=== PATIENT | female | born 1980 | race Two or more races ===

== ENCOUNTER 2020-07-10 07:38 | Outpatient (REF) | payer OTHER, SELFPAY ==
[2020-07-10 08:01] LABS: MANUAL DIFF FLAG NO
[2020-07-10 08:10] LABS: Basophils Percent Auto 0.7 % (0-2); Eosinophils Absolute Auto 0.1 X10*3/uL (0.0-0.4); Eosinophils Percent Auto 1.4 % (0-4); Hematocrit 34.9 % (37-47); Hemoglobin 10.6 g/dl (12.0-16.0); Imm Gran Abs Auto 0.02 X10*3/uL (0.00-0.03); Imm Gran Pct Auto 0.3 % (0.0-0.4); Lymphocytes Absolute Auto 1.3 X10*3/uL (1.2-4.9); Lymphocytes Percent Auto 22.9 % (20-40); Mean Corpuscular HGB Conc 30.4 g/dl (31.0-35.0); Mean Corpuscular Hemoglobin 23.2 pg (27.0-33.0); Mean Corpuscular Volume 76.4 fL (80-98); Mean Platelet Volume 11.7 fL (9.4-12.3); Monocytes Absolute Auto 0.5 X10*3/uL (0.1-1.2); Monocytes Percent Auto 8.2 % (2-11); Neutrophils Absolute Auto 3.9 X10*3/uL (2.0-8.3); Neutrophils Percent Auto 66.5 % (45-73); Platelet Count 295 X10*3/uL (160-400); Red Blood Count 4.57 X10*6/uL (4.20-5.50); Red Cell Distribution Width 17.1 % (11.0-16.0); White Blood Count 5.8 X10*3/uL (4.8-10.8)
[2020-07-10 08:33] LABS: Anion Gap 12 (12-20); Blood Urea Nitrogen 13 mg/dL (9-16); Calcium 8.5 mg/dL (8.4-10.2); Carbon Dioxide 25 mmol/L (22-29); Chloride 109 mmol/L (96-108); Cholesterol 153 mg/dL; Estimated Glomerular Filt Rate > 60; Glucose Random 107 mg/dL (60-115); HDL Cholesterol 36 mg/dL; LDL Cholesterol Calculated 92 mg/dl; Sodium 142 mmol/L (135-145); Triglycerides 125 mg/dL
[2020-07-10 09:06] LABS: Reflex LDLD? No
== END 2020-07-10 07:39 | disposition home or self-care (01) ==
LOC: HO.LAB 07:38
PROVIDERS: PCP Internal Medicine; Visit Provider Nurse Practitioner Family
DX: M54.5 Low back pain (principal)
CPT/HCPCS: 36415; 80048; 80061; 85025

== ENCOUNTER 2020-07-18 09:17 | Outpatient (REF) | payer OTHER, SELFPAY ==
[2020-07-18 16:01] LABS: CT PCR NOT DETECTED (Not Detect.); NG PCR NOT DETECTED (Not Detect.)
[2020-07-20 18:27] LABS: HPV mRNA E6/E7 Not Detected (Not Detected)
== END 2020-07-18 09:18 | disposition home or self-care (01) ==
LOC: HO.LAB 09:17
PROVIDERS: PCP Internal Medicine; Referring Provider Internal Medicine; Visit Provider Advanced Practice Midwife
DX: Z01.419 Encounter for gynecological examination (general) (routine) without abnormal findings (principal); Z11.51 Encounter for screening for human papillomavirus (HPV); Z11.3 Encounter for screening for infections with a predominantly sexual mode of transmission; R10.2 Pelvic and perineal pain
CPT/HCPCS: 87491; 87591; 87624; 87625; 88141; 88142

== ENCOUNTER → 2020-10-16 13:34 | Outpatient (BNVA) | payer OTHER, SELFPAY | PROVIDERS: Visit Provider Obstetrics & Gynecology | DX: R87.610 Atypical squamous cells of undetermined significance on cytologic smear of cervix (ASC-US) (principal) | CPT/HCPCS: 99212 ==

== ENCOUNTER 2020-10-27 15:13 | Outpatient (REF) | payer OTHER, SELFPAY ==
--- NOTE | 2020-10-27 15:16 | MM_ITS ---
EXAMINATION: MM SCREENING DIGITAL BREAST TOMOSYNTHESIS, BILATERAL CLINICAL INFORMATION: Screening. Asymptomatic. The lifetime risk of breast cancer based on the Tyrer-Cuzick Model is 15.0%. COMPARISON: Mammography: None TECHNIQUE: Digital breast tomosynthesis is performed in both the craniocaudal and mediolateral oblique views along with computer-aided detection (CAD). Synthesized 2D images are generated from the tomosynthesis. FINDINGS: There are scattered areas of fibroglandular density (ACR BI-RADS breast composition Category b). There are no significant masses, abnormal calcifications, or other abnormalities. MM/MM tomosynthesis screening BI IMPRESSION: There are no significant changes from prior study. ASSESSMENT: BI-RADS 1: Negative RECOMMENDATION: Routine annual mammography screening. This patient's information was entered into a reminder system with a target due date for their next mammogram.
== END 2020-10-27 15:14 | disposition home or self-care (01) ==
LOC: HO.MAMMO 15:13
PROVIDERS: PCP Nurse Practitioner Family; Visit Provider Nurse Practitioner Family
DX: Z12.31 Encounter for screening mammogram for malignant neoplasm of breast (principal)
CPT/HCPCS: 77063; 77067

== ENCOUNTER → 2020-10-30 12:02 | Outpatient (BNVA) | payer OTHER, SELFPAY | PROVIDERS: PCP Nurse Practitioner Family; Visit Provider Obstetrics & Gynecology ==

== ENCOUNTER 2020-11-02 09:23 | Outpatient (REF) | payer OTHER, SELFPAY | END 2020-11-02 09:24 | disposition home or self-care (01) | LOC: HO.LAB 09:23 | PROVIDERS: Visit Provider Internal Medicine | DX: Z20.822 Contact with and (suspected) exposure to COVID-19 (principal) | CPT/HCPCS: 36415; C9803; U0003; U0005 ==

== ENCOUNTER 2020-12-25 08:09 | Outpatient (REF) | payer OTHER, SELFPAY ==
[2020-12-25 08:37] LABS: MANUAL DIFF FLAG NO
[2020-12-25 08:42] LABS: Basophils Percent Auto 0.6 % (0-2); Eosinophils Absolute Auto 0.1 X10*3/uL (0.0-0.4); Eosinophils Percent Auto 1.7 % (0-4); Hemoglobin 11.8 g/dl (12.0-16.0); Imm Gran Abs Auto 0.02 X10*3/uL (0.00-0.03); Imm Gran Pct Auto 0.4 % (0.0-0.4); Lymphocytes Absolute Auto 1.4 X10*3/uL (1.2-4.9); Lymphocytes Percent Auto 25.8 % (20-40); Mean Corpuscular HGB Conc 31.9 g/dl (31.0-35.0); Mean Corpuscular Hemoglobin 26.3 pg (27.0-33.0); Mean Corpuscular Volume 82.4 fL (80-98); Mean Platelet Volume 11.7 fL (9.4-12.3); Monocytes Absolute Auto 0.5 X10*3/uL (0.1-1.2); Monocytes Percent Auto 8.9 % (2-11); Neutrophils Absolute Auto 3.3 X10*3/uL (2.0-8.3); Neutrophils Percent Auto 62.6 % (45-73); Platelet Count 308 X10*3/uL (160-400); Red Blood Count 4.49 X10*6/uL (4.20-5.50); Red Cell Distribution Width 16.4 % (11.0-16.0); White Blood Count 5.3 X10*3/uL (4.8-10.8)
[2020-12-25 09:25] LABS: Iron 37 mcg/dL (30-160); Percent Iron Saturation 10 % (15-50); Total Iron Binding Capacity 371 mcg/dL (228-428); Unsaturated Iron Binding 334 ug/dL
[2020-12-25 09:48] LABS: TSH reflex Free T4 2.23 uIU/mL (0.32-4.0)
[2020-12-30 13:31] LABS: Vitamin D 25-OH, D2 <4 ng/mL; Vitamin D 25-OH, D3 26 ng/mL; Vitamin D 25-OH, Total 26 ng/mL (30-100)
== END 2020-12-25 08:10 | disposition home or self-care (01) ==
LOC: HO.LAB 08:09
PROVIDERS: PCP Internal Medicine; Visit Provider Internal Medicine
DX: D50.0 Iron deficiency anemia secondary to blood loss (chronic) (principal); L65.9 Nonscarring hair loss, unspecified; E55.9 Vitamin D deficiency, unspecified
CPT/HCPCS: 36415; 82306; 83540; 84443; 85025

== ENCOUNTER 2021-03-05 09:10 | Outpatient (REF) | payer OTHER, SELFPAY ==
[2021-03-05 09:45] LABS: MANUAL DIFF FLAG NO
[2021-03-05 09:48] LABS: Basophils Percent Auto 0.5 % (0-2); Eosinophils Absolute Auto 0.1 X10*3/uL (0.0-0.4); Eosinophils Percent Auto 1.4 % (0-4); Hematocrit 36.5 % (37-47); Hemoglobin 11.3 g/dl (12.0-16.0); Imm Gran Abs Auto 0.03 X10*3/uL (0.00-0.03); Imm Gran Pct Auto 0.5 % (0.0-0.4); Lymphocytes Absolute Auto 1.4 X10*3/uL (1.2-4.9); Mean Corpuscular Hemoglobin 24.7 pg (27.0-33.0); Mean Corpuscular Volume 79.9 fL (80-98); Mean Platelet Volume 11.5 fL (9.4-12.3); Monocytes Absolute Auto 0.6 X10*3/uL (0.1-1.2); Monocytes Percent Auto 9.7 % (2-11); Neutrophils Absolute Auto 3.6 X10*3/uL (2.0-8.3); Neutrophils Percent Auto 62.9 % (45-73); Platelet Count 307 X10*3/uL (160-400); Red Blood Count 4.57 X10*6/uL (4.20-5.50); Red Cell Distribution Width 15.8 % (11.0-16.0); White Blood Count 5.7 X10*3/uL (4.8-10.8)
[2021-03-05 10:10] LABS: Iron 51 mcg/dL (30-160); Percent Iron Saturation 13 % (15-50); Total Iron Binding Capacity 394 mcg/dL (228-428); Unsaturated Iron Binding 343 ug/dL
[2021-03-12 05:22] LABS: Vitamin D 25-OH, D2 <4 ng/mL; Vitamin D 25-OH, D3 26 ng/mL; Vitamin D 25-OH, Total 26 ng/mL (30-100)
== END 2021-03-05 09:11 | disposition home or self-care (01) ==
LOC: HO.LAB 09:10
PROVIDERS: PCP Internal Medicine; Visit Provider Internal Medicine
DX: D50.0 Iron deficiency anemia secondary to blood loss (chronic) (principal); E55.9 Vitamin D deficiency, unspecified
CPT/HCPCS: 36415; 82306; 83540; 85025

== ENCOUNTER 2021-06-26 08:47 | Outpatient (REF) | payer OTHER, SELFPAY ==
--- NOTE | ~2021-06-26 | XR_ITS ---
EXAMINATION: XR LUMBAR SPINE XR HIP, RIGHT CLINICAL INFORMATION: Low back and hip pain. COMPARISON: CT abdomen and pelvis 05/30/2020. TECHNIQUE: 3 views lumbosacral spine, 2 views right hip. FINDINGS: The lumbar spine appears unremarkable. Vertebral heights and disc spaces are well preserved. Surgical clips are present, most likely in the gallbladder fossa. Some minimal degenerative changes are present in the left hip with some mild supra-acetabular sclerosis and some minimal osteophyte formation. A tiny osteophyte is present arising from the greater trochanter XR/XR hip RT min 2V IMPRESSION: Unremarkable lumbar spine. Minimal degenerative changes right hip.
--- NOTE | ~2021-06-26 | XR_ITS ---
EXAMINATION: XR LUMBAR SPINE XR HIP, RIGHT CLINICAL INFORMATION: Low back and hip pain. COMPARISON: CT abdomen and pelvis 05/30/2020. TECHNIQUE: 3 views lumbosacral spine, 2 views right hip. FINDINGS: The lumbar spine appears unremarkable. Vertebral heights and disc spaces are well preserved. Surgical clips are present, most likely in the gallbladder fossa. Some minimal degenerative changes are present in the left hip with some mild supra-acetabular sclerosis and some minimal osteophyte formation. A tiny osteophyte is present arising from the greater trochanter XR/XR lumbar spine 2-3V IMPRESSION: Unremarkable lumbar spine. Minimal degenerative changes right hip.
[2021-06-26 09:15] LABS: MANUAL DIFF FLAG NO
[2021-06-26 09:17] LABS: Basophils Percent Auto 0.3 % (0-2); Eosinophils Absolute Auto 0.1 X10*3/uL (0.0-0.4); Eosinophils Percent Auto 1.4 % (0-4); Hematocrit 36.4 % (37-47); Hemoglobin 11.4 g/dl (12.0-16.0); Imm Gran Abs Auto 0.02 X10*3/uL (0.00-0.03); Imm Gran Pct Auto 0.3 % (0.0-0.4); Lymphocytes Absolute Auto 1.5 X10*3/uL (1.2-4.9); Lymphocytes Percent Auto 25.2 % (20-40); Mean Corpuscular HGB Conc 31.3 g/dl (31.0-35.0); Mean Corpuscular Hemoglobin 23.5 pg (27.0-33.0); Mean Corpuscular Volume 75.1 fL (80-98); Monocytes Absolute Auto 0.5 X10*3/uL (0.1-1.2); Monocytes Percent Auto 8.5 % (2-11); Neutrophils Absolute Auto 3.7 X10*3/uL (2.0-8.3); Neutrophils Percent Auto 64.3 % (45-73); Platelet Count 303 X10*3/uL (160-400); Red Blood Count 4.85 X10*6/uL (4.20-5.50); Red Cell Distribution Width 17.2 % (11.0-16.0); White Blood Count 5.8 X10*3/uL (4.8-10.8)
[2021-06-26 10:03] LABS: Alanine Aminotransferase 13 U/L (0-31); Alkaline Phosphatase 76 U/L (39-117); Anion Gap 12 (12-20); Aspartate Amino Transferase 16 U/L (5-31); Bilirubin Total 0.5 mg/dL (0.0-1.0); Blood Urea Nitrogen 10 mg/dL (9-16); Calcium 8.8 mg/dL (8.4-10.2); Carbon Dioxide 22 mmol/L (22-29); Chloride 109 mmol/L (96-108); Cholesterol 181 mg/dL; Estimated Glomerular Filt Rate > 60; Glucose Fasting 111 mg/dL (60-99); HDL Cholesterol 45 mg/dL; LDL Cholesterol Calculated 112 mg/dl; Potassium 4.3 mmol/L (3.3-5.1); Sodium 139 mmol/L (135-145); Total Protein 6.9 g/dL (6.5-8.0); Triglycerides 120 mg/dL
[2021-06-26 10:25] LABS: Thyroid Stimulating Hormone 2.07 uIU/mL (0.32-4.0)
[2021-07-03 14:21] LABS: Vitamin D 25-OH, D2 <4 ng/mL; Vitamin D 25-OH, D3 29 ng/mL; Vitamin D 25-OH, Total 29 ng/mL (30-100)
== END 2021-06-26 08:48 | disposition home or self-care (01) ==
LOC: HO.XRAY 08:47
PROVIDERS: PCP Internal Medicine; Visit Provider Internal Medicine
DX: M54.5 Low back pain (principal); M25.551 Pain in right hip; E66.09 Other obesity due to excess calories; Z68.33 Body mass index [BMI] 33.0-33.9, adult; E55.9 Vitamin D deficiency, unspecified; E78.5 Hyperlipidemia, unspecified; D50.0 Iron deficiency anemia secondary to blood loss (chronic)
CPT/HCPCS: 36415; 72100; 73502; 80053; 80061; 82306; 84443; 85025

== ENCOUNTER 2021-07-20 13:29 | Outpatient (REF) | payer OTHER, SELFPAY ==
[2021-07-21 16:06] LABS: CT PCR NOT DETECTED (Not Detect.); NG PCR NOT DETECTED (Not Detect.)
[2021-07-22 12:35] LABS: BV Int Neg Control Negative (Negative); BV Int Pos Control Positive (Positive)
[2021-07-24 21:47] LABS: HPV mRNA E6/E7 rflx Not Detected (Not Detected)
== END 2021-07-20 13:30 | disposition home or self-care (01) ==
LOC: HO.LAB 13:29
PROVIDERS: PCP Internal Medicine; Visit Provider Advanced Practice Midwife
DX: Z01.411 Encounter for gynecological examination (general) (routine) with abnormal findings (principal); Z11.51 Encounter for screening for human papillomavirus (HPV); Z11.3 Encounter for screening for infections with a predominantly sexual mode of transmission; N93.9 Abnormal uterine and vaginal bleeding, unspecified; N89.8 Other specified noninflammatory disorders of vagina; Z20.2 Contact with and (suspected) exposure to infections with a predominantly sexual mode of transmission; Z87.42 Personal history of other diseases of the female genital tract
CPT/HCPCS: 87480; 87491; 87510; 87591; 87624; 87660; 88142

== ENCOUNTER 2021-07-24 14:00 | Outpatient (REF) | payer OTHER, SELFPAY ==
--- NOTE | ~2021-07-24 | US_ITS ---
EXAMINATION: US PELVIS CLINICAL INFORMATION: N93.9 - Abnormal uterine and vaginal bleeding, unspecified. Age 41. LMP 07/03/2021. COMPARISON: Pelvic ultrasound 06/03/2019, CT abdomen and pelvis 05/30/2020 TECHNIQUE: Ultrasound of the pelvis is performed using both transabdominal and transvaginal transducers along with Doppler. Transvaginal imaging is performed due to inadequate visualization transabdominally. FINDINGS: Uterus: The uterus is anteverted and measures 9.2 x 5.0 x 5.8 cm. The double wall endometrial thickness is 11 mm. There is a anterior left intramural uterine body fibroid measuring 4.0 x 3.6 x 3.6 cm. Prior measurement 2.1 x 2.0 x 2.0 cm. A separate subcentimeter submucous fibroid described previously is not appreciated on current exam. There are some small nabothian cysts in the cervix. Adnexa: Left ovary not visualized. Ultrasound worksheet notes prior left oophorectomy. The right ovary measures 4.7 x 2.5 x 2.7 cm (volume 17.3 mL). There is no adnexal mass or pelvic ascites. US/US pelvic and transvaginal IMPRESSION: 1. Intramural anterior left uterine body fibroid 4.0 cm. Prior measurement 2.0 cm on ultrasound 06/03/2019. 2. Double wall endometrial thickness is normal at 11 mm. 3. No adnexal mass or pelvic ascites.
== END 2021-07-24 14:01 | disposition home or self-care (01) ==
LOC: HO.HMGCX 14:00
PROVIDERS: PCP Internal Medicine; Visit Provider Advanced Practice Midwife
DX: N93.9 Abnormal uterine and vaginal bleeding, unspecified (principal)
CPT/HCPCS: 76830; 76856

== ENCOUNTER 2021-08-07 12:41 | Outpatient (REF) | payer OTHER, SELFPAY ==
[2021-08-09 10:54] LABS: BV Int Neg Control Negative (Negative); BV Int Pos Control Positive (Positive)
== END 2021-08-07 12:42 | disposition home or self-care (01) ==
LOC: HO.LAB 12:41
PROVIDERS: Visit Provider Advanced Practice Midwife
DX: N93.9 Abnormal uterine and vaginal bleeding, unspecified (principal); N89.8 Other specified noninflammatory disorders of vagina
CPT/HCPCS: 58100; 81025; 87480; 87510; 87660; 88305

== ENCOUNTER → 2021-08-30 08:06 | Outpatient (BNVA) | payer OTHER, SELFPAY | PROVIDERS: PCP Internal Medicine; Visit Provider Advanced Practice Midwife | DX: Z30.430 Encounter for insertion of intrauterine contraceptive device (principal); N93.9 Abnormal uterine and vaginal bleeding, unspecified; Z71.2 Person consulting for explanation of examination or test findings | CPT/HCPCS: 58300 ==

== ENCOUNTER 2021-10-08 09:00 | Outpatient (RCR) | payer OTHER, SELFPAY ==
--- NOTE | 2021-09-03 09:58 | MHC.PT.EP ---
[facility] [place] Office [place] Office [place] Office [address] [phone] F: [phone] F: [phone] F: [phone] F: [phone] Physical Therapy Plan of Care Date of Evaluation: Date of Surgery: NA Diagnosis: Pain in R hip Assessment: Nimisha is a 41 year old female who is referred to PT for R hip pain . Pt reported of having back pain which travels to proximal part of R hip. Pt reports of having insidious onset of pain about 3 months back. She denies any trauma or fall. On PT examination she presents with 7/10 pain across her back with standing, sitting and walking, decreased lumbar ROM, decreased muscle strength and altered posture. Due to these impairments she has pain with ADLs requiring her to stand, walk and lift heavy weights. She is unemployed. She would benefit from skilled PT to address the aforementioned impairments and increased tolerance to functional activities. Frequency and Duration: The patient will be seen 2/week for 5 weeks Short Term Goals: 1. Pt will have 50% decrease in pain which will enable her to sit, stand and walk for 30 minutes in 2 weeks. 2. Pt will be able to move her trunk through all planes of motion which will enable her to dress her lower body without pain in 3 weeks Hop Weigher Goals: 1. Pt will demonstrate an increase in muscle strength by 1 grade which will enable to perform IADLS like cleaning, cooking, and grocery without pain in 4 weeks. 2. Pt will be independent with HEPs for symptom management and maintenance following d/c in 5 weeks. Treatment Plan: Modalities to reduce pain, spasms and effusion. Manual therapy to restore motion and function. Therapeutic exercise to improve strength and flexibility. Neuromuscular re-education for posture and balance. Therapeutic activities to return to functional activities of daily living. Electronically signed by: Cecelia Sen PT DPT (09/03/21) Please sign and return to therapist. Thank you for your referral.
--- NOTE | 2021-11-07 14:31 | MHC.PT.DC ---
[facility] [place] Office [place] Office [place] Office [address] [phone] F: [phone] F: [phone] F: [phone] F: [phone] Physical Therapy Discharge Report Diagnosis: Pain in R hip Date of Surgery: NA Date of Evaluation: 09/03/21 Date of Discharge: 11/07/21 Treatments to Date: 5 Cancellations to Date: 1 No Shows to Date: 3 Discharge Status: Visit Non-compliance Discharge Summary: Nimisha had 3 no shows and 1 cancellation. She is therefore being d/c from therapy for non compliance. Electronically signed by: Cecelia Sen PT DPT Please sign and return to therapist. Thank you for your referral.
== END 2021-11-07 14:32 | disposition home or self-care (01) ==
LOC: HO.PT 09:00
PROVIDERS: PCP Internal Medicine; Visit Provider Internal Medicine
DX: M25.551 Pain in right hip (principal)
CPT/HCPCS: 97110; 97161

== ENCOUNTER 2021-11-12 12:14 | Outpatient (REF) | payer OTHER, SELFPAY ==
--- NOTE | ~2021-11-12 | MM_ITS ---
EXAMINATION: MM SCREENING DIGITAL BREAST TOMOSYNTHESIS, BILATERAL CLINICAL INFORMATION: Screening. Asymptomatic. The lifetime risk of breast cancer based on the Tyrer-Cuzick Model is 15%. COMPARISON: Mammography: 10/27/2020 (new baseline). TECHNIQUE: Digital breast tomosynthesis is performed in both the craniocaudal and mediolateral oblique views along with computer-aided detection (CAD). Synthesized 2D images are generated from the tomosynthesis. FINDINGS: There are scattered areas of fibroglandular density (ACR BI-RADS breast composition Category b). There are no significant masses, abnormal calcifications, or other abnormalities. Parenchymal pattern is similar to prior studies. Intramammary node posterior upper outer right breast is stable. There is a circumscribed macrolobulated nodule anterior 12:30 o'clock left breast similar to prior study. No developing density or architectural abnormality. The axilla and skin contours are unremarkable. Low left axillary tail node again seen as incidental finding. No significant changes. MM/MM tomosynthesis screening BI IMPRESSION: No mammographic evidence of malignancy. ASSESSMENT: BI-RADS 2: Benign RECOMMENDATION: Routine annual mammography screening. This patient's information was entered into a reminder system with a target due date for their next mammogram.
== END 2021-11-12 12:15 | disposition home or self-care (01) ==
LOC: HO.MAMMO 12:14
PROVIDERS: Visit Provider Internal Medicine
DX: Z12.31 Encounter for screening mammogram for malignant neoplasm of breast (principal)
CPT/HCPCS: 77063; 77067

== ENCOUNTER 2022-01-16 07:47 | Outpatient (REF) | payer OTHER, SELFPAY ==
[2022-01-16 08:00] LABS: MANUAL DIFF FLAG NO
[2022-01-16 08:23] LABS: Basophils Percent Auto 0.5 % (0-2); Eosinophils Absolute Auto 0.2 X10*3/uL (0.0-0.4); Eosinophils Percent Auto 2.6 % (0-4); Hematocrit 36.9 % (37.0-47.0); Hemoglobin 11.3 g/dl (12.0-16.0); Imm Gran Abs Auto 0.02 X10*3/uL (0.00-0.03); Imm Gran Pct Auto 0.4 % (0.0-0.4); Lymphocytes Absolute Auto 1.5 X10*3/uL (1.2-4.9); Lymphocytes Percent Auto 25.9 % (20-40); Mean Corpuscular HGB Conc 30.6 g/dl (31.0-35.0); Mean Corpuscular Hemoglobin 23.2 pg (27.0-33.0); Mean Corpuscular Volume 75.6 fL (80.0-98.0); Mean Platelet Volume 11.8 fL (9.4-12.3); Monocytes Absolute Auto 0.6 X10*3/uL (0.1-1.2); Neutrophils Absolute Auto 3.5 x10*3/uL (2.0-8.3); Neutrophils Percent Auto 60.6 % (45-73); Platelet Count 339 X10*3/uL (160-400); Red Blood Count 4.88 X10*6/uL (4.20-5.50); Red Cell Distribution Width 19.4 % (11.0-16.0); White Blood Count 5.7 X10*3/uL (4.8-10.8)
[2022-01-16 08:50] LABS: Alanine Aminotransferase 16 U/L (0-31); Albumin Level 3.6 g/dL (3.5-5.0); Alkaline Phosphatase 65 U/L (39-117); Anion Gap 13 (12-20); Aspartate Amino Transferase 16 U/L (5-31); Bilirubin Total 0.4 mg/dL (0.0-1.0); Blood Urea Nitrogen 12 mg/dL (9-16); Carbon Dioxide 24 mmol/L (22-29); Chloride 107 mmol/L (96-108); Estimated Glomerular Filt Rate > 60; Glucose Fasting 109 mg/dL (60-99); Potassium 4.2 mmol/L (3.3-5.1); Sodium 140 mmol/L (135-145); Total Protein 6.5 g/dL (6.5-8.0)
[2022-01-20 14:17] LABS: Vitamin D 25-OH, D2 <4 ng/mL; Vitamin D 25-OH, D3 22 ng/mL; Vitamin D 25-OH, Total 22 ng/mL (30-100)
== END 2022-01-16 07:48 | disposition home or self-care (01) ==
LOC: HO.LAB 07:47
PROVIDERS: PCP Internal Medicine; Visit Provider Internal Medicine
DX: E55.9 Vitamin D deficiency, unspecified (principal); K21.9 Gastro-esophageal reflux disease without esophagitis; D64.9 Anemia, unspecified
CPT/HCPCS: 36415; 80053; 82306; 85025

== ENCOUNTER 2022-07-25 08:29 | Outpatient (REF) | payer OTHER, SELFPAY | END 2022-07-25 08:30 | disposition home or self-care (01) | LOC: HO.LNP 08:29 | PROVIDERS: Visit Provider Advanced Practice Midwife | DX: Z13.89 Encounter for screening for other disorder (principal) ==

== ENCOUNTER 2022-07-25 08:40 | Outpatient (REF) | payer OTHER, SELFPAY ==
[2022-07-25 10:59] LABS: HBc Num1 0.09 S/CO (0.00-0.79); HIV AB/AG Nonreactive (Nonreactive); HIV Num 1 0.06 S/CO (0.00-0.99); Hepatitis B Core Antibody Nonreactive (Nonreactive); ~HepC Num1 0.18 S/CO (0.00-0.79); ~Hepatitis C Antibody Nonreactive (Nonreactive)
[2022-07-25 17:18] LABS: CT PCR NOT DETECTED (Not Detect.); NG PCR NOT DETECTED (Not Detect.)
[2022-07-26 05:58] LABS: Syphilis Screen Nonreactive (Nonreactive)
== END 2022-07-25 08:41 | disposition home or self-care (01) ==
LOC: HO.LAB 08:40
PROVIDERS: PCP Internal Medicine; Visit Provider Advanced Practice Midwife
DX: Z11.3 Encounter for screening for infections with a predominantly sexual mode of transmission (principal); Z11.4 Encounter for screening for human immunodeficiency virus [HIV]; Z20.2 Contact with and (suspected) exposure to infections with a predominantly sexual mode of transmission
CPT/HCPCS: 86704; 86780; 86803; 87389; 87491; 87591

== ENCOUNTER 2022-10-28 06:59 | Outpatient (REF) | payer OTHER, SELFPAY ==
[2022-10-28 07:16] LABS: MANUAL DIFF FLAG NO
[2022-10-28 07:46] LABS: Basophils Percent Auto 0.6 % (0-2); Eosinophils Absolute Auto 0.3 X10*3/uL (0.0-0.4); Eosinophils Percent Auto 5.1 % (0-4); Hematocrit 42.3 % (37.0-47.0); Hemoglobin 13.7 g/dl (12.0-16.0); Imm Gran Abs Auto 0.03 X10*3/uL (0.00-0.03); Imm Gran Pct Auto 0.5 % (0.0-0.4); Lymphocytes Absolute Auto 1.4 X10*3/uL (1.2-4.9); Lymphocytes Percent Auto 21.2 % (20-40); Mean Corpuscular HGB Conc 32.4 g/dl (31.0-35.0); Mean Corpuscular Hemoglobin 27.3 pg (27.0-33.0); Mean Corpuscular Volume 84.3 fL (80.0-98.0); Mean Platelet Volume 11.5 fL (9.4-12.3); Monocytes Absolute Auto 0.7 X10*3/uL (0.1-1.2); Neutrophils Absolute Auto 4.1 x10*3/uL (2.0-8.3); Neutrophils Percent Auto 61.6 % (45-73); Platelet Count 303 X10*3/uL (160-400); Red Blood Count 5.02 X10*6/uL (4.20-5.50); Red Cell Distribution Width 15.9 % (11.0-16.0); White Blood Count 6.6 X10*3/uL (4.8-10.8)
[2022-10-28 08:29] LABS: Alanine Aminotransferase 17 U/L (0-31); Albumin Level 3.7 g/dL (3.5-5.0); Alkaline Phosphatase 84 U/L (39-117); Anion Gap 13 (12-20); Aspartate Amino Transferase 16 U/L (5-31); Bilirubin Total 0.3 mg/dL (0.0-1.0); Blood Urea Nitrogen 9 mg/dL (9-16); Calcium 8.8 mg/dL (8.4-10.2); Carbon Dioxide 26 mmol/L (22-29); Chloride 107 mmol/L (96-108); Cholesterol 180 mg/dL; Estimated Glomerular Filt Rate > 60; Glucose Fasting 109 mg/dL (60-99); HDL Cholesterol 39 mg/dL; Iron 30 mcg/dL (30-160); LDL Cholesterol Calculated 116 mg/dl; Percent Iron Saturation 10 % (15-50); Potassium 4.3 mmol/L (3.3-5.1); Sodium 142 mmol/L (135-145); Total Iron Binding Capacity 312 mcg/dL (228-428); Total Protein 6.5 g/dL (6.5-8.0); Triglycerides 127 mg/dL; Unsaturated Iron Binding 282 ug/dL
== END 2022-10-28 07:00 | disposition home or self-care (01) ==
LOC: HO.LAB 06:59
PROVIDERS: PCP Internal Medicine; Visit Provider Internal Medicine
DX: Z00.00 Encounter for general adult medical examination without abnormal findings (principal); E55.9 Vitamin D deficiency, unspecified; D64.9 Anemia, unspecified
CPT/HCPCS: 36415; 80053; 80061; 82306; 83540; 85025

== ENCOUNTER 2022-11-18 08:28 | Outpatient (REF) | payer OTHER, SELFPAY ==
--- NOTE | ~2022-11-18 | MM_ITS ---
EXAMINATION: MM SCREENING DIGITAL BREAST TOMOSYNTHESIS, BILATERAL CLINICAL INFORMATION: Screening. Asymptomatic. The lifetime risk of breast cancer based on the Tyrer-Cuzick Model is 15%. COMPARISON: Mammography: 11/12/2021, 10/27/2020 TECHNIQUE: Digital breast tomosynthesis is performed in both the craniocaudal and mediolateral oblique views along with computer-aided detection (CAD). Synthesized 2D images are generated from the tomosynthesis. FINDINGS: There are scattered areas of fibroglandular density (ACR BI-RADS breast composition Category b). There are no significant masses, abnormal calcifications, or other abnormalities. There are scattered minor asymmetries similar to prior studies. No developing density or architectural abnormality. No significant mass. There is a stable circumscribed macrolobulated nodule anterior left breast. Incidental intramammary node again seen posterior upper outer right breast. No abnormal calcifications. Skin contours are smooth. No significant changes. MM/MM tomosynthesis screening BI IMPRESSION: No mammographic evidence of malignancy. ASSESSMENT: BI-RADS 2: Benign RECOMMENDATION: Routine annual mammography screening. This patient's information was entered into a reminder system with a target due date for their next mammogram.
== END 2022-11-18 08:29 | disposition home or self-care (01) ==
LOC: HO.MAMMO 08:28
PROVIDERS: PCP Internal Medicine; Visit Provider Internal Medicine
DX: Z12.31 Encounter for screening mammogram for malignant neoplasm of breast (principal)
CPT/HCPCS: 77063; 77067

== ENCOUNTER → 2022-11-27 10:21 | Outpatient (REF) | payer OTHER, SELFPAY | LOC: HO.SL 10:21 | PROVIDERS: PCP Internal Medicine; Visit Provider Internal Medicine | DX: R40.0 Somnolence (principal) | CPT/HCPCS: 95806 ==

== ENCOUNTER 2023-05-26 07:16 | Outpatient (AMB) | payer OTHER, SELFPAY ==
[2023-05-26 07:33] VITALS: BP 132/70; PULSE 89; O2SAT 98; BMI 36.5
--- NOTE | 2023-05-26 07:33 | MHC.PC.OV ---
Vital Signs 05/26/23 07:33 Height 5 ft 6 in Weight 226 lb BMI 36.5 BP 132/70 Blood Pressure Location Lt brachial Position Sitting Pulse 89 Pulse Source Pulse Oximeter Pulse Oximetry (%) 98 Oxygen Delivery Method Room Air Intake Visit Reasons: physical exam [place] Gang Sawyer Required: No Accompanied by: Self / Same As Patient Allergies No Known Allergies [No Known Allergies*] Allergy (Verified 05/26/23 07:42) Medication List - Last Reconciled 05/26/23 by Sarai Quintana MD cholecalciferol (vitamin D3) 25 mcg PO DAILY 90 days docusate sodium (Colace) 100 mg PO BID 90 days escitalopram oxalate 10 mg PO BEDTIME 90 days ferrous sulfate 325 mg PO DAILY 90 days levonorgestrel (Mirena) intrauterine metoprolol succinate ER 25 mg PO DAILY 90 days naproxen 500 mg PO Q12H PRN 90 days pantoprazole 40 mg PO DAILY 90 days Tobacco use date assessed: 11/06/22 Dental Screening Dental Screen Date: 05/26/23 Did you have a dental visit in the last 12 months?: Yes Did you have a dental problem in the last 6 months where you did not have access to dental care?: No Was dental information given to patient?: Patient has dentist HPI HPI Comments History of Present Illness Details This is a 42-year-old female that comes for her physical exam. Last mammogram was October 2022 and was normal. Last Pap smear was 2020 and was normal with HPV negative. Denies any chest pain or shortness of breath. Advised to start a high-fiber diet for her constipation. [facility] Medical History Constipation by delayed colonic transit FH: cholecystectomy GERD (gastroesophageal reflux disease) Hair loss Hypovitaminosis D Insomnia Iron deficiency anemia due to chronic blood loss Lumbar pain Microscopic hematuria Mild major depression, single episode Mitral valve prolapse Obesity (BMI 30.0-34.9) Obesity due to excess calories without serious comorbidity Pelvic pain Right hip pain Right hip pain Skin lesion Tachycardia Surgical History H/O LEEP History of appendectomy History of cholecystectomy History of left oophorectomy Tubal ligation status Family History Father Diabetes mellitus Mother History of breast cancer Emphysema lung Sister Thyroid cancer Brother History of open heart surgery Social History Household Members: Spouse Housing: Apartment Alcohol intake: current Alcohol intake frequency: holidays/special occasions only Alcohol type: beer Patient Tobacco Use Status: Former Tobacco user Tobacco use type: Cigarette Years Smoked: 3 years e-Cigarette/Vaping Use: Never Used Second Hand Smoke Exposure: No service: No Current occupational status: unemployed Sexual orientation: Straight/Heterosexual Gender identity: Female Cognitive needs: No Hearing needs: No Vision needs: No Female Reproductive History Menstrual Age of Menarche: 13 Questionnaire PHQ-9 Over the last 2 weeks, how often have you been bothered by any of the following problems? 1. Little interest or pleasure in doing things: not at all 2. Feeling down, depressed, or hopeless: not at all 3. Trouble falling or staying asleep, or sleeping too much: not at all 4. Feeling tired or having little energy: not at all 5. Poor appetite or overeating: not at all 6. Feeling bad about yourself - or that you are a failure or have let yourself or your family down: not at all 7. Trouble concentrating on things, such as reading the newspaper or watching television: not at all 8. Moving or speaking so slowly that other people could have noticed. Or the opposite - being so fidgety or restless that you have been moving around a lot more than usual: not at all 9. Thoughts that you would be better off or of hurting yourself in some way: not at all Total score: 0 Depression Screening Interpretation: Negative [id number] - PHQ-9 Billing: Yes Source: Developed by Drs. Jose Quiles, Es Dominguez, Tony Blackwell and colleagues, with an educational scott from [employer]. Thrive Questionnaire Date Thrive assessed: 11/06/22 AUDIT C Alcohol Use Questionnaire (AUDIT-C) 1. How often do you have a drink containing alcohol?: Monthly or less 2. How many drinks containing alcohol do you have on a typical day when you are drinking?: 1 or 2 3. How often do you have six or more drinks on one occasion?: Never Total Score: 1 Score Reviewed/Action Taken: No FORREST-7 AMB Questionnaire FORREST-7 Date FORREST - 7 assessed: 11/06/22 Source: Developed by Drs. Jose Quiles, Es Dominguez, Tony Blackwell and colleagues, with an educational scott from [employer]. Review of Systems Const All systems reviewed & are unremarkable except as noted in HPI and below Eyes Reports no additional complaints, Denies change in vision and Denies other visual disturbances Card Denies chest pain at rest, Denies chest pain with activity, Denies edema, Denies irregular heart rhythm, Denies claudication, Denies dyspnea, Denies dyspnea on exertion, Denies orthopnea, Denies paroxysmal nocturnal dyspnea and Denies slow heart rate Resp Denies cough, Denies dyspnea and Denies dyspnea on exertion GI Denies abdominal pain, Denies change in bowel habits, Denies excessive flatus, Denies nausea and Denies vomiting Denies urinary incontinence, Denies urinary hesitancy and Denies urinary urgency Musc Denies abnormal gait, Denies atrophy, Denies deformity and Denies limited range of motion Skin/Breast Denies bleeding lesions, Denies changing lesions and Denies rash Neuro Denies abnormal gait and Denies lack of coordination Physical exam (Primary Care) Vital Signs: Last Vital Signs Pulse 89 05/26/23 07:33 BP 132/70 05/26/23 07:33 Pulse Ox 98 05/26/23 07:33 Oxygen Delivery Method Room Air 05/26/23 07:33 BMI result Body Mass Index 36.5 Tobacco/Smoking Status: Tobacco use Status Tobacco use date assessed 11/06/22 05/26/23 07:37 Patient Tobacco Use Status Former Tobacco user 05/26/23 07:37 Tobacco use type Cigarette 05/26/23 07:37 e-Cigarette/Vaping Use Never Used 05/26/23 07:37 PHQ-9: PHQ-9 Score PHQ-9: Total score 0 05/26/23 07:37 Depression Screening Interpretation: Negative Thrive Assessment: Date of Thrive Assessment Date Thrive assessed 11/06/22 05/26/23 07:37 Const Orientation/consciousness: patient oriented x3 HENMT Head: Yes normal to inspection, Yes normocephalic and Yes atraumatic Ears: external ears normal Eyes General: appearance normal, both eyes and all related structures Eyelids: Yes eyelids normal Conjunctivae: conjunctivae normal Neck Neck: Yes normal visual inspection and Yes supple Resp Effort & Inspection: normal respiratory effort Auscultation: clear to auscultation bilaterally Cardio Jugular venous distension: no JVD Rate: regular rate Rhythm: regular rhythm Heart sounds: S1 normal heart sound present and S2 normal heart sound present GI Inspection: Yes normal to inspection Palpation (GI): Soft to palpation and nontender Auscultation: normal bowel sounds Skin General skin exam: no rashes or lesions noted Neuro General: patient oriented x3 and no focal motor deficits Extrem General: Yes full ROM Psych Appearance: grossly normal Assessment and Plan Assessment & Plan (1) Physical exam: Code(s): Z00.00 - Encounter for general adult medical examination without abnormal findings Plan: Repeat in a year. Orders: Orders IRON PROFILE Today D64.9 - Anemia, unspecified Vitamin D 25-OH Total Today E55.9 - Vitamin D deficiency, unspecified Complete Blood Count Auto Diff Today D64.9 - Anemia, unspecified Comprehensive Cameron. Panel Fast Today Z00.00 - Encounter for general adult medical examination without abnormal findings Lipid Panel Today Z00.00 - Encounter for general adult medical examination without abnormal findings Coding Level of Care Code Est Pt Prev Care 40-64y(36478) Diagnoses Physical exam Z00.00 Time Spent (min) 31
== END 2023-05-26 07:49 | disposition home or self-care (01) ==
PROVIDERS: Visit Provider Internal Medicine
DX: Z00.00 Encounter for general adult medical examination without abnormal findings (principal)
CPT/HCPCS: 99396

== ENCOUNTER 2023-07-29 09:11 | Outpatient (AMB) | payer OTHER, SELFPAY ==
[2023-07-29 09:29] VITALS: BP 126/84; BMI 37.1
--- NOTE | 2023-07-29 09:29 | A.OFFVIS_ITS ---
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 Doing well with no concerns. She tries to eat healthy and does not exercise. Interested in weight management. Mirena insert ~2 yrs. ago. She denies vaginal itching and irritation. STI screening offered; she declines Denies family history of breast, ovarian or colon cancer. Last pap smear 2020, was negative, due next in 2023. [facility] Medical History Skin lesion Constipation by delayed colonic transit Right hip pain Tachycardia Mild major depression, single episode Lumbar pain Right hip pain Hair loss Obesity due to excess calories without serious comorbidity Insomnia Iron deficiency anemia due to chronic blood loss Microscopic hematuria Hypovitaminosis D Pelvic pain FH: cholecystectomy Obesity (BMI 30.0-34.9) GERD (gastroesophageal reflux disease) Mitral valve prolapse Surgical History History of cholecystectomy H/O LEEP History of left oophorectomy History of appendectomy Tubal ligation status Family History Father Diabetes mellitus Mother History of breast cancer Emphysema lung Sister Thyroid cancer Brother History of open heart surgery Social History Household Members: Spouse Housing: Apartment Alcohol intake: current Alcohol intake frequency: holidays/special occasions only Alcohol type: beer Patient Tobacco Use Status: Former Tobacco user Tobacco use type: Cigarette Years Smoked: 3 years e-Cigarette/Vaping Use: Never Used Second Hand Smoke Exposure: No service: No Current occupational status: unemployed Sexual orientation: Straight/Heterosexual Gender identity: Female Cognitive needs: No Hearing needs: No Vision needs: No Female Reproductive History Menstrual Age of Menarche: 13 Duration of menses: 3-5 days Date of last menstrual period: 06/29/23 control method: progestin IUCD Total pregnancies: 3 Full term: 3 Number of Living Children: 3 Date of last pap smear: 07/23/21 Date of Mammogram: 11/18/22 Review of Systems Const All systems reviewed & are unremarkable except as noted in HPI and below Reports as per HPI Eyes Reports no additional complaints ENT Reports no additional complaints Card Reports no additional complaints Resp Reports no additional complaints GI Reports as per HPI and Reports no additional complaints Reports as per HPI Musc Reports no additional complaints Skin/Breast Reports as per HPI Neuro Reports no additional complaints Psych Reports no additional complaints Endo Reports no additional complaints Sudhir/Lymph Reports no additional complaints Aller/Immun Reports no additional complaints Physical Exam Vital Signs: Last Vital Signs BP 126/84 07/29/23 09:29 BMI result Body Mass Index 37.1 Const General: cooperative, healthy appearing, no acute distress, well developed and alert Orientation/consciousness: patient oriented x3 HEENT Head: Yes normal to inspection Eyes General: appearance normal, both eyes and all related structures Neck Neck: Yes normal visual inspection Thyroid: Thyroid normal Chest Chest palpation & inspection: normal inspection of the chest and other (no puckering, dimpling, peau de orange, retraction, discharge, masses) Breast/axilla inspection: normal inspection of the breasts and Other (large, pe ndulous) Breast/axilla palpation: normal palpation of the breasts Resp Effort & Inspection: normal respiratory effort GI Inspection: Yes normal to inspection Palpation (GI): Soft to palpation Rectal Exam - Female: deferred General: Yes bladder normal to palpation External Female Exam: normal external appearance and normal appearance of the urethra Speculum Exam - Vagina: normal appearance of the vagina, normal palpation and normal vaginal discharge Speculum Exam - Cervix: normal appearance of the cervix and normal palpation Bimanual exam- vagina & uterus: normal bimanual exam, normal palpation, uterine size normal, bladder normal to palpation, normal palpation, non-tender and other (IUD strings present) Bimanual Exam- Adnexa, other: no masses Skin General skin exam: no rashes or lesions noted Rashes: no rashes Neuro General: patient oriented x3 Cognition (Neuro): normal cognition Extrem General: Yes normal to inspection Psych Attitude: cooperative Thought process: Normal thought process present Assessment & Plan Assessment & Plan (1) Well female exam without gynecological exam: Code(s): Z00.00 - Encounter for general adult medical examination without abnormal findings Plan: Discussed: Current recommendations for pap smears per ASCCP guidelines. Breast awareness and periodic breast exams. Maintain a healthy lifestyle including a well balanced diet and routine exercise. Call PCP to discuss referral for Wgt. Management. Sign up for the patient portal if not already enrolled. All of her questions and concerns were addressed to the best of my ability. 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 Coding Level of Care Code Est Pt Prev Care 40-64y(02044) Diagnoses Well female exam without gynecological exam Z00.00
== END 2023-07-29 10:01 | disposition home or self-care (01) ==
LOC: HO.HWS 09:11
PROVIDERS: PCP Internal Medicine; Visit Provider Advanced Practice Midwife
DX: Z01.419 Encounter for gynecological examination (general) (routine) without abnormal findings (principal)
CPT/HCPCS: 99396

== ENCOUNTER → 2023-07-29 09:11 | Outpatient (BNVA) | payer OTHER, SELFPAY | PROVIDERS: PCP Internal Medicine; Visit Provider Advanced Practice Midwife | DX: Z00.00 Encounter for general adult medical examination without abnormal findings (principal) | CPT/HCPCS: 99396 ==

== ENCOUNTER 2023-11-20 08:52 | Outpatient (REF) | payer OTHER, SELFPAY | END 2023-11-20 08:53 | disposition home or self-care (01) | LOC: HO.MAMMO 08:52 | PROVIDERS: PCP Internal Medicine; Visit Provider Internal Medicine | DX: Z12.31 Encounter for screening mammogram for malignant neoplasm of breast (principal) | CPT/HCPCS: 77063; 77067 ==

== ENCOUNTER → 2023-11-20 09:15 | Outpatient (BNV) | payer OTHER, SELFPAY | PROVIDERS: PCP Internal Medicine; Visit Provider Radiology Diagnostic Radiology | DX: Z12.31 Encounter for screening mammogram for malignant neoplasm of breast (principal) | CPT/HCPCS: 77063; 77067 ==

== ENCOUNTER 2024-01-09 18:45 | Emergency (ER) | payer OTHER, SELFPAY ==
[2024-01-09 18:47] VITALS: BP 140/90; PULSE 87; RESP 18; TEMP 36.9; O2SAT 97; BMI 34.4
--- NOTE | 2024-01-09 18:49 | ED.URI ---
HPI - URI/Sore Throat General Chief Complaint: Upper Respiratory Symptoms Stated Complaint: throat pain x 10 days Time Seen by Provider: 01/09/24 18:51 Source: patient Mode of arrival: ambulatory Limitations: no limitations History of Present Illness HPI Narrative: Patient is a 43-year-old female who presents emergency department reporting severe sore throat for the past 10 days. Has not yet been seen for this. She denies any additional symptoms; fevers, chills, rhinorrhea, cough ear pain chest pain shortness of breath. Denies any known sick contacts. Related Data Home Medications ?Medication ?Instructions ?Recorded ?Confirmed levonorgestrel 21 mcg/24 hours (8 intrauterine 07/25/22 05/26/23 yrs) 52 mg intrauterine device (Mirena) Previous Rx's ?Medication ?Instructions ?Recorded ferrous sulfate 325 mg (65 mg 325 mg PO DAILY 90 days #90 tabs 05/25/21 iron) tablet cholecalciferol (vitamin D3) 25 25 mcg PO DAILY 90 days #90 caps 06/02/23 mcg (1,000 unit) capsule docusate sodium 100 mg capsule 100 mg PO BID 90 days #180 caps 06/02/23 (Colace) metoprolol succinate 25 mg 25 mg PO DAILY 90 days #90 tabs 09/30/23 tablet,extended release 24 hr escitalopram oxalate 10 mg tablet 10 mg PO BEDTIME 90 days #90 tabs 11/26/23 pantoprazole 40 mg tablet,delayed 40 mg PO DAILY 90 days #90 tabs 12/07/23 release naproxen 500 mg tablet 500 mg PO Q12H PRN pain 90 days 12/26/23 #180 tabs amoxicillin 500 mg tablet 1,000 mg (2 x 500 mg) PO DAILY 9 01/09/24 days #18 tabs Allergies Allergy/AdvReac Type Severity Reaction Status Date / Time No Known Allergies Allergy Verified 01/09/24 18:51 [No Known Allergies*] Review of Systems Review of Systems: Yes all other systems are reviewed and are negative PMFSH Past Medical History Attestation statement: The following information was validated with the patient. Source: old records reviewed Medical History Skin lesion Constipation by delayed colonic transit Right hip pain Tachycardia Mild major depression, single episode Lumbar pain Right hip pain Hair loss Obesity due to excess calories without serious comorbidity Insomnia Iron deficiency anemia due to chronic blood loss Microscopic hematuria Hypovitaminosis D Pelvic pain FH: cholecystectomy Obesity (BMI 30.0-34.9) GERD (gastroesophageal reflux disease) Mitral valve prolapse Surgical History History of cholecystectomy H/O LEEP History of left oophorectomy History of appendectomy Tubal ligation status Family History Family History Father Diabetes mellitus Mother History of breast cancer Emphysema lung Sister Thyroid cancer Brother History of open heart surgery Social History Social History Household Members: Spouse Housing: Apartment Alcohol intake: current Alcohol intake frequency: holidays/special occasions only Alcohol type: beer Patient Tobacco Use Status: Former Tobacco user Tobacco use type: Cigarette Years Smoked: 3 years Smoked in Last 30 Days: No e-Cigarette/Vaping Use: Never Used Second Hand Smoke Exposure: No Use of substances other than those prescribed or required for medical reasons: No Advance Directives: No Advance Directives Information Provided: No service: No Current occupational status: unemployed Sexual orientation: Straight/Heterosexual Gender identity: Female Cognitive needs: No Hearing needs: No Vision needs: No Physical Exam Vital Signs: Vital Signs: Last Vital Signs Temp 97 F 01/09/24 20:16 Pulse 79 01/09/24 20:16 Resp 18 01/09/24 20:16 BP 140/75 H 01/09/24 20:16 Pulse Ox 98 01/09/24 20:16 O2 Del Method Room Air 01/09/24 20:16 BMI result Body Mass Index 34.4 Appearance: Alert.?Oriented to person, place and time. No acute distress.?Normal affect. Eyes: Pupils equal, round and reactive to light.? ENT: TM normal bilaterally. Pharynx erythematous with 2+ tonsillar hypertrophy bilaterally. Uvula midline. No exudates. No trismus. No drooling. ? Neck: Normal inspection.? Neck supple.??No cervical adenopathy CVS: Heart sounds normal. Normal heart rate and rhythm.? Pulses normal.?? Respiratory: No respiratory distress.? Lung sounds clear to auscultation bilaterally?? Abdomen: Soft and non-tender. Normoactive bowel sounds. Skin: Skin warm and dry.? Normal skin color.? ? Extremities: No lower extremity edema.? Neuro: Moves all extremities spontaneously. Sensation intact bilaterally. No motor deficits. Ambulates with normal steady gait. Medications Administered Discontinued Medications Generic Name Dose Route Start Last Admin Trade Name Santiago PRN Reason Stop Dose Admin Amoxicillin 1,000 mg 01/09/24 19:37 01/09/24 19:42 Amoxicillin 500 Mg Capsule PO 01/09/24 19:38 1,000 mg ONCE ONE Administration Medical Decision Making Medical Decision Making [facility] Narrative: Patient is a 43-year-old female who presents emergency department for evaluation of sore throat COVID-19/influenza/RSV testing negative. Strep a testing is positive. On exam does not have exam findings consistent with peritonsillar retropharyngeal abscess. Received initial dose of antibiotic while in the emergency department and sent remainder prescription to pharmacy. Well-appearing, nontoxic, afebrile, no tachycardia or tachypnea/hypoxia. Speaking clear full sentences, ambulatory with steady gait. Discussed conservative treatment including rest, hydration, Tylenol/ibuprofen as needed for fever and body aches, saline nasal spray, humidifier, [id number] cold medication. Advised to follow-up with primary care provider as needed, discussed reasons to return back to the emergency department. All questions were answered. Patient discharged home in stable condition. Differential Diagnosis Differential Diagnoses: The differential diagnosis associated with the presentation includes ( See narrative above) Admission/Observation Consideration of admission/observation: Escalation of care including admission/observation considered ( see narrative above) Lab Data [facility] Lab Attestation statement: I reviewed the patient's lab results. ( see narrative above) Labs: Lab Results 01/09/24 Range/Units 18:55 Influenza Type A (PCR) NEGATIVE (Negative) Influenza Type B (PCR) NEGATIVE (Negative) RSV RNA Qual (PCR) NEGATIVE (Negative) SARS-CoV-2 RNA (RT-PCR) NEGATIVE (Negative) S. pyogenes GrpA SHAYY Positive A (Negative) Prescription Management I considered prescription management with: Pain Medication ( acetaminophen/ibuprofen) and Antibiotic Discharge Plan Discharge Clinical Impression: Acute streptococcal pharyngitis Patient Disposition: Home, Self-Care Instructions: Strep Throat (ED) Additional Instructions: Complete the entire course of antibiotics as prescribed. You can take ibuprofen 200 mg, 3 tablets (600mg) every 6-8 hours as needed for pain, in addition to Tylenol 500 mg, 2 tablets (1,000mg) every 4-6 hours as needed for pain, but not to exceed 3 doses daily (3,000mg).? Warm saltwater gargles, warm tea with honey, Chloraseptic throat spray/throat lozenges may be helpful for your symptoms as well. Follow-up with your primary care provider if symptoms do not improve. Prescriptions: New amoxicillin 500 mg tablet 1,000 mg PO DAILY 9 Days Qty: 18 0RF No Action ferrous sulfate 325 mg (65 mg iron) tablet 325 mg PO DAILY 90 Days Qty: 90 3RF cholecalciferol (vitamin D3) 25 mcg (1,000 unit) capsule 25 mcg PO DAILY 90 Days Qty: 90 3RF docusate sodium [Colace] 100 mg capsule 100 mg PO BID 90 Days Qty: 180 1RF metoprolol succinate 25 mg tablet extended release 24 hr 25 mg PO DAILY 90 Days Qty: 90 3RF escitalopram oxalate 10 mg tablet 10 mg PO BEDTIME 90 Days Qty: 90 1RF pantoprazole 40 mg tablet,delayed release (DR/EC) 40 mg PO DAILY 90 Days Qty: 90 3RF naproxen 500 mg tablet 500 mg PO Q12H PRN (Reason: pain) 90 Days Qty: 180 0RF Mirena 20 mcg/24 hours (8 yrs) 52 mg intrauterine device intrauterine Referrals: Sarai Moy MD [Primary Care Provider] - Interventions: ED Discharge Assessment Last Done: 01/09/24 20:16 Discharge Date/Time: 01/09/24 20:16 Print Language: Swazi
[2024-01-09 19:08] LABS: IDNOW Serial# 08D9AD1C; Strep A Nucleic Acid Positive (Negative)
[2024-01-09 19:37] LABS: Influenza A PCR NEGATIVE (Negative); Influenza B PCR NEGATIVE (Negative); Resp Syncy Virus RNA Qual PCR NEGATIVE (Negative); SARS COV2 PCR INHOUSE NEGATIVE (Negative)
[2024-01-09] MEDS: Amoxicillin 500 MG CAPSULE 1000 MG PO (19:42)
[2024-01-09 20:11] VITALS: BP 143/84; PULSE 79; RESP 18; TEMP 36.1; O2SAT 97
[2024-01-09 20:16] VITALS: BP 140/75; PULSE 79; RESP 18; TEMP 36.1; O2SAT 98
== END 2024-01-09 20:16 | disposition home or self-care (01) ==
LOC: HO.ED 19:54
PROVIDERS: Nurse Practitioner Family; Emergency Provider Student in an Organized Health Care Education/Training Program; PCP Internal Medicine
DX: J02.0 Streptococcal pharyngitis (principal)
CPT/HCPCS: 0241U; 87651; 99283; 99284

== ENCOUNTER 2024-05-14 07:46 | Outpatient (REF) | payer OTHER, SELFPAY ==
[2024-05-14 07:53] LABS: MANUAL DIFF FLAG NO
[2024-05-14 08:01] LABS: Basophils Percent Auto 0.5 % (0-2); Eosinophils Absolute Auto 0.1 X10*3/uL (0.0-0.4); Eosinophils Percent Auto 2.1 % (0-4); Hematocrit 43.1 % (37.0-47.0); Hemoglobin 14.1 g/dl (12.0-16.0); Imm Gran Abs Auto 0.02 X10*3/uL (0.00-0.03); Imm Gran Pct Auto 0.3 % (0.0-0.4); Lymphocytes Absolute Auto 1.7 X10*3/uL (1.2-4.9); Lymphocytes Percent Auto 27.2 % (20-40); Mean Corpuscular HGB Conc 32.7 g/dl (31.0-35.0); Mean Corpuscular Hemoglobin 28.1 pg (27.0-33.0); Mean Platelet Volume 10.9 fL (9.4-12.3); Monocytes Absolute Auto 0.6 X10*3/uL (0.1-1.2); Monocytes Percent Auto 9.6 % (2-11); Neutrophils Absolute Auto 3.7 x10*3/uL (2.0-8.3); Neutrophils Percent Auto 60.3 % (45-73); Platelet Count 306 X10*3/uL (160-400); Red Blood Count 5.01 X10*6/uL (4.20-5.50); Red Cell Distribution Width 14.6 % (11.0-16.0); White Blood Count 6.1 X10*3/uL (4.8-10.8)
[2024-05-14 08:40] LABS: Alanine Aminotransferase 19 U/L (0-31); Albumin Level 3.9 g/dL (3.5-5.0); Alkaline Phosphatase 88 U/L (39-117); Anion Gap 10 (12-20); Aspartate Amino Transferase 20 U/L (5-31); Bilirubin Total 0.5 mg/dL (0.0-1.0); Blood Urea Nitrogen 11 mg/dL (9-16); Calcium 8.9 mg/dL (8.4-10.2); Carbon Dioxide 28 mmol/L (22-29); Chloride 107 mmol/L (96-108); Cholesterol 206 mg/dL (<200); Estimated Glomerular Filt Rate 58; Glucose Fasting 116 mg/dL (60-99); HDL Cholesterol 40 mg/dL (>40); Iron 92 mcg/dL (30-160); LDL Cholesterol Calculated 129 mg/dL (<100); Percent Iron Saturation 33 % (15-50); Potassium 3.9 mmol/L (3.3-5.1); Sodium 141 mmol/L (135-145); Total Iron Binding Capacity 280 mcg/dL (228-428); Total Protein 7.4 g/dL (6.5-8.0); Triglycerides 185 mg/dL (<150); Unsaturated Iron Binding 188 ug/dL
[2024-05-14 08:55] LABS: Vitamin D 25-OH Total 37.7 ng/mL (>30)
== END 2024-05-14 07:47 | disposition home or self-care (01) ==
LOC: HO.LAB 07:46
PROVIDERS: PCP Internal Medicine; Visit Provider Internal Medicine
DX: Z00.00 Encounter for general adult medical examination without abnormal findings (principal); D64.9 Anemia, unspecified; E55.9 Vitamin D deficiency, unspecified
CPT/HCPCS: 36415; 80053; 80061; 82306; 83540; 85025

== ENCOUNTER 2024-05-27 07:46 | Outpatient (AMB) | payer OTHER, SELFPAY ==
--- NOTE | 2024-05-27 07:54 | A.OFFPC_ITS ---
Vital Signs 05/27/24 07:55 Height 5 ft 6 in Weight 217 lb BMI 35.0 BP 120/80 Blood Pressure Location Lt brachial Position Sitting Intake Visit Reasons: PE Intake Note: Patient here for a physical exam [employer] Supervisor Required: No Accompanied by: Self / Same As Patient Allergies No Known Allergies [No Known Allergies*] Allergy (Verified 05/27/24 08:13) Medication List - Last Reconciled 05/27/24 by Sarai Quintana MD cholecalciferol (vitamin D3) 25 mcg PO DAILY 90 days docusate sodium (Colace) 100 mg PO BID 90 days escitalopram oxalate 10 mg PO BEDTIME 90 days ferrous sulfate 325 mg PO DAILY 90 days levonorgestrel (Mirena) intrauterine metoprolol succinate ER 25 mg PO DAILY 90 days naproxen 500 mg PO Q12H PRN 90 days pantoprazole 40 mg PO DAILY 90 days Tobacco use date assessed: 05/27/24 Dental Screening Dental Screen Date: 05/27/24 Did you have a dental visit in the last 12 months?: No Did you have a dental problem in the last 6 months where you did not have access to dental care?: No Was dental information given to patient?: Patient has dentist HPI HPI Comments History of Present Illness Details This is a 43-year-old female with mild major depression that comes for her physical exam. Mammogram done 2023. Pap smear done 2020 and was normal. She is obese with a BMI of 35 and was advised to do diet and exercise to reach BMI goal less than 30. Declines weight loss surgery and declines medication to lose weight. Depression stable with medication. She also complains of left knee pain and spine pain involving neck, thoracic spine and lumbar spine that has been present for months. Will order x-ray and refer her to pain management. Labs were discussed and cholesterol is elevated and was advised to do low- cholesterol diet. Blood glucose is elevated with diagnosis of impaired glucose tolerance and was advised a low-carbohydrate diet and exercise. [facility] Medical History (Updated 05/27/24 @ 10:09 by Sarai Quintana MD) Skin lesion Constipation by delayed colonic transit Right hip pain Tachycardia Mild major depression, single episode Lumbar pain Right hip pain Hair loss Obesity due to excess calories without serious comorbidity Insomnia Iron deficiency anemia due to chronic blood loss Microscopic hematuria Hypovitaminosis D Pelvic pain FH: cholecystectomy Obesity (BMI 30.0-34.9) GERD (gastroesophageal reflux disease) Mitral valve prolapse Surgical History History of cholecystectomy H/O LEEP History of left oophorectomy History of appendectomy Tubal ligation status Family History Father Diabetes mellitus Mother History of breast cancer Emphysema lung Sister Thyroid cancer Brother History of open heart surgery Social History Household Members: Spouse Housing: Apartment Alcohol intake: former Patient Tobacco Use Status: Former Tobacco user Tobacco use type: Cigarette Years Smoked: 3 years e-Cigarette/Vaping Use: Never Used Second Hand Smoke Exposure: No service: No Current occupational status: unemployed Sexual orientation: Straight/Heterosexual Gender identity: Female Cognitive needs: No Hearing needs: No Vision needs: No Female Reproductive History Menstrual Age of Menarche: 13 Questionnaire PHQ-9 Over the last 2 weeks, how often have you been bothered by any of the following problems? 1. Little interest or pleasure in doing things: several days 2. Feeling down, depressed, or hopeless: several days 3. Trouble falling or staying asleep, or sleeping too much: not at all 4. Feeling tired or having little energy: several days 5. Poor appetite or overeating: not at all 6. Feeling bad about yourself - or that you are a failure or have let yourself or your family down: not at all 7. Trouble concentrating on things, such as reading the newspaper or watching television: not at all 8. Moving or speaking so slowly that other people could have noticed. Or the opposite - being so fidgety or restless that you have been moving around a lot more than usual: not at all 9. Thoughts that you would be better off or of hurting yourself in some way: not at all Total score: 3 Depression Screening Interpretation: Positive Depression Screening Follow-up: Existing condition, In treatment and Follow-up Visit Requested Depression Screening Done: Yes 53411 - PHQ-9 Billing: Yes Source: Developed by Drs. Jose Quiles, Es Dominguez, Tony Blackwell and colleagues, with an educational scott from [employer]. Thrive Questionnaire Date Thrive assessed: 05/27/24 I am a: Patient What is your living situation today?: I have a steady place to live Within the past 12 months, did the food you bought not last and you didn't have the money to get more?: I choose not to answer this question Within the past 12 months, did you worry whether your food would run out before you got money to buy more?: I choose not to answer this question Do you have trouble paying for medicines?: Yes Do you have trouble getting transportation to medical appointments?: No Do you have trouble paying your heating and electricity bill?: No Do you have trouble taking care of your child, family member or friend?: I choose not to answer this question Do you have trouble with day-to-day activities such as bathing, preparing meals, shopping, managing finances, etc.?: Yes Are you currently unemployed and looking for a job?: Yes Are you interested in more education?: I choose not to answer this question Please select the resources that you would like help with: Housing/Skilled Nursing, Food, Paying for medicine and Daily support Currently or been in a relationship where the following occur: I choose not to answer THRIVE Score: 0 AUDIT C Alcohol Use Questionnaire (AUDIT-C) 1. How often do you have a drink containing alcohol?: Never Total Score: 0 Score Reviewed/Action Taken: No FORREST-7 AMB Questionnaire FORREST-7 Date FORREST - 7 assessed: 05/27/24 Feeling nervous, anxious, or on edge: 0 = Not at all Not being able to stop or control worryin = Not at all Worrying too much about different things: 0 = Not at all Trouble relaxin = Several days Being so restless that it is hard to sit still: 0 = Not at all Becoming easily annoyed or irritable: 0 = Not at all Feeling afraid as if something awful might happen: 1 = Several days Total FORREST-7 score (0-4 normal; 5-9 mild; 10-14 moderate; 15-21 severe): 2 Source: Developed by Drs. Jose Quiles, Tony Verma and colleagues, with an educational scott from [employer]. FORREST-7 Assessment Billing FORREST-7 Assessment Tool: FORREST-7 Assessment 36425 Review of Systems Const All systems reviewed & are unremarkable except as noted in HPI and below Card Denies chest pain at rest, Denies chest pain with activity, Denies edema, Denies irregular heart rhythm, Denies claudication, Denies dyspnea, Denies dyspnea on exertion, Denies orthopnea, Denies paroxysmal nocturnal dyspnea and Denies slow heart rate Resp Denies cough, Denies dyspnea and Denies dyspnea on exertion GI Denies abdominal pain, Denies change in bowel habits, Denies excessive flatus, Denies nausea and Denies vomiting Musc Reports back pain and Reports arthralgias Physical exam (Primary Care) Vital Signs: Last Vital Signs BP 120/80 05/27/24 07:55 BMI result Body Mass Index 35.0 BMI Assessment/Plan discussion: High BMI High, discussed plan: lifestyle, weight reduction, dietary and physical activity Tobacco/Smoking Status: Tobacco use Status Tobacco use date assessed 05/27/24 05/27/24 08:01 Patient Tobacco Use Status Former Tobacco user 05/27/24 08:01 Tobacco use type Cigarette 05/27/24 08:01 e-Cigarette/Vaping Use Never Used 05/27/24 08:01 PHQ-9: PHQ-9 Score PHQ-9: Total score 3 05/27/24 08:18 Depression Screening Interpretation: Positive Depression Screening Follow-up: Existing condition, In treatment and Follow-up Visit Requested Thrive Assessment: Date of Thrive Assessment Date Thrive assessed 05/27/24 05/27/24 08:01 Currently or been in a relationship where the following occur: I choose not to answer [facility] Head: Yes normal to inspection, Yes normocephalic and Yes atraumatic Ears: external ears normal Eyes General: appearance normal, both eyes and all related structures Eyelids: Yes eyelids normal Conjunctivae: conjunctivae normal Neck Neck: Yes normal visual inspection and Yes supple Resp Effort & Inspection: normal respiratory effort Auscultation: clear to auscultation bilaterally Cardio Jugular venous distension: no JVD Rate: regular rate Rhythm: regular rhythm Heart sounds: S1 normal heart sound present and S2 normal heart sound present GI Inspection: Yes normal to inspection Palpation (GI): Soft to palpation and nontender Auscultation: normal bowel sounds Skin General skin exam: no rashes or lesions noted Neuro General: no focal motor deficits Extrem General: Yes full ROM Psych Appearance: grossly normal Assessment and Plan Assessment & Plan (1) Physical exam: Code(s): Z00.00 - Encounter for general adult medical examination without abnormal findings Plan: Repeat in a year. (2) Mild major depression, single episode: Code(s): F32.0 - Major depressive disorder, single episode, mild Plan: Continue escitalopram. (3) Impaired glucose tolerance: Code(s): R73.02 - Impaired glucose tolerance (oral) Plan: Start low-carbohydrate diet. Repeat fasting blood glucose. (4) Thoracic spine pain: Code(s): M54.6 - Pain in thoracic spine Plan: X-ray ordered. Referred to pain management. (5) Lumbar pain: Code(s): M54.50 - Low back pain, unspecified Plan: X-ray ordered. Referred to pain management. (6) Left knee pain: Code(s): M25.562 - Pain in left knee Qualifiers: Chronicity: chronic Qualified Code(s): M25.562 - Pain in left knee; G89.29 - Other chronic pain Plan: X-ray ordered. Referred to pain management. (7) Neck pain: Code(s): M54.2 - Cervicalgia Plan: X-ray ordered. Referred to pain management. Orders: Orders XR thoracic spine 2V Today M54.6 - Pain in thoracic spine XR knee LT 2V Today M25.562 - Pain in left knee XR cervical spine 2V Today M54.2 - Cervicalgia XR lumbar spine 2-3V Today M54.50 - Low back pain, unspecified Referrals Pain Management Referral M25.562 - Pain in left knee, M54.2 - Cervicalgia, M54.50 - Low back pain, unspecified, M54.6 - Pain in thoracic spine Coding Level of Care Code Est Pt Level 4 (74107) Est Pt Prev Care 40-64y(02963) Diagnoses Physical exam Z00.00 Mild major depression, single episode F32.0 Impaired glucose tolerance R73.02 Thoracic spine pain M54.6 Lumbar pain M54.50 Chronic pain of left knee M25.562; G89.29 Chronicity: chronic Neck pain M54.2 Additional Codes FORREST-7 Assessment Billing - FORREST-7 Assessment Tool: FORREST-7 Assessment 28410 ([id number]) Time Spent (min) 40
[2024-05-27 07:55] VITALS: BP 120/80; BMI 35.0
== END 2024-05-27 09:20 | disposition home or self-care (01) ==
PROVIDERS: PCP Internal Medicine; Visit Provider Internal Medicine
DX: Z00.00 Encounter for general adult medical examination without abnormal findings (principal); F32.0 Major depressive disorder, single episode, mild; R73.02 Impaired glucose tolerance (oral); M54.6 Pain in thoracic spine; M54.50 Low back pain, unspecified; M25.562 Pain in left knee; M54.2 Cervicalgia
CPT/HCPCS: 99214; 99396

== ENCOUNTER 2024-06-10 14:36 | Outpatient (REF) | payer OTHER, SELFPAY ==
--- NOTE | ~2024-06-10 | XR_ITS ---
EXAMINATION: X-ray series of the cervical spine, dorsal spine, and lumbar sacral spine CLINICAL INFORMATION: Low back pain thoracic pain cervical pain COMPARISON: X-ray lumbosacral spine May 2021 TECHNIQUE: Cervical spine 3 views. Dorsal spine 2 views. Lumbosacral spine 3 views. FINDINGS: Lumbosacral spine: Vertebral bodies normally aligned with normal height. Disc spaces normal facets normal. Surrounding bone and visualized joints in the pelvis normal. Intrauterine device incidentally noted. Surgical clips in the right upper quadrant. Dorsal spine: Vertebral bodies normally aligned with normal height. Disc spaces normal. Surrounding bones soft tissues normal. Cervical spine: Vertebral bodies normally aligned with normal height. There is minimal degenerative disc changes present at the C6-C7 level with small endplate osteophytes anteriorly. No disc space narrowing. Remaining disc levels normal. Assess normal. Surrounding bones and soft tissues unremarkable. XR/XR thoracic spine 2V IMPRESSION: LUMBOSACRAL SPINE: No acute abnormality. THORACIC SPINE: Normal. CERVICAL SPINE: Minimal spondylosis C6-C7. Electronically signed by: Isaac Bazzi MD 06/21/2024 02:41 PM EDT
--- NOTE | ~2024-06-10 | XR_ITS ---
EXAMINATION: XR KNEE, LEFT CLINICAL INFORMATION: M25.562 - Pain in left knee COMPARISON: None available. TECHNIQUE: Three views of the left knee. FINDINGS: No fracture or joint effusion. Alignment is anatomic. Joint spaces are maintained. No abnormal soft tissue calcification. XR/XR knee LT 2V IMPRESSION: Normal left knee. Electronically signed by: Narayan Bates MD 06/21/2024 02:28 PM EDT
--- NOTE | ~2024-06-10 | XR_ITS ---
EXAMINATION: X-ray series of the cervical spine, dorsal spine, and lumbar sacral spine CLINICAL INFORMATION: Low back pain thoracic pain cervical pain COMPARISON: X-ray lumbosacral spine May 2021 TECHNIQUE: Cervical spine 3 views. Dorsal spine 2 views. Lumbosacral spine 3 views. FINDINGS: Lumbosacral spine: Vertebral bodies normally aligned with normal height. Disc spaces normal facets normal. Surrounding bone and visualized joints in the pelvis normal. Intrauterine device incidentally noted. Surgical clips in the right upper quadrant. Dorsal spine: Vertebral bodies normally aligned with normal height. Disc spaces normal. Surrounding bones soft tissues normal. Cervical spine: Vertebral bodies normally aligned with normal height. There is minimal degenerative disc changes present at the C6-C7 level with small endplate osteophytes anteriorly. No disc space narrowing. Remaining disc levels normal. Assess normal. Surrounding bones and soft tissues unremarkable. XR/XR cervical spine 2V IMPRESSION: LUMBOSACRAL SPINE: No acute abnormality. THORACIC SPINE: Normal. CERVICAL SPINE: Minimal spondylosis C6-C7. Electronically signed by: Isaac Bazzi MD 06/21/2024 02:41 PM EDT
--- NOTE | ~2024-06-10 | XR_ITS ---
EXAMINATION: X-ray series of the cervical spine, dorsal spine, and lumbar sacral spine CLINICAL INFORMATION: Low back pain thoracic pain cervical pain COMPARISON: X-ray lumbosacral spine May 2021 TECHNIQUE: Cervical spine 3 views. Dorsal spine 2 views. Lumbosacral spine 3 views. FINDINGS: Lumbosacral spine: Vertebral bodies normally aligned with normal height. Disc spaces normal facets normal. Surrounding bone and visualized joints in the pelvis normal. Intrauterine device incidentally noted. Surgical clips in the right upper quadrant. Dorsal spine: Vertebral bodies normally aligned with normal height. Disc spaces normal. Surrounding bones soft tissues normal. Cervical spine: Vertebral bodies normally aligned with normal height. There is minimal degenerative disc changes present at the C6-C7 level with small endplate osteophytes anteriorly. No disc space narrowing. Remaining disc levels normal. Assess normal. Surrounding bones and soft tissues unremarkable. XR/XR lumbar spine 2-3V IMPRESSION: LUMBOSACRAL SPINE: No acute abnormality. THORACIC SPINE: Normal. CERVICAL SPINE: Minimal spondylosis C6-C7. Electronically signed by: Isaac Bazzi MD 06/21/2024 02:41 PM EDT
== END 2024-06-10 14:37 | disposition home or self-care (01) ==
LOC: HO.XRAY 14:36
PROVIDERS: PCP Internal Medicine; Visit Provider Internal Medicine
DX: M25.562 Pain in left knee (principal); M54.6 Pain in thoracic spine; M54.2 Cervicalgia; M54.50 Low back pain, unspecified
CPT/HCPCS: 72040; 72070; 72100; 73560

== ENCOUNTER 2024-06-11 14:13 | Outpatient (AMB) | payer OTHER, SELFPAY ==
[2024-06-11 14:29] VITALS: BP 137/87; PULSE 75; O2SAT 96; BMI 35.0
--- NOTE | 2024-06-11 14:29 | A.OFFVIS_ITS ---
Vital Signs 06/11/24 14:29 Height 5 ft 6 in Weight 217 lb BMI 35.0 BP 137/87 Blood Pressure Location Rt brachial Position Sitting Pulse 75 Pulse Source Pulse Oximeter Pulse Oximetry (%) 96 Oxygen Delivery Method Room Air Intake Visit Reasons: Pain in thoracic spine Allergies No Known Allergies [No Known Allergies*] Allergy (Verified 06/11/24 14:30) Medication List - Last Reconciled 06/11/24 by Kiera Rdz cholecalciferol (vitamin D3) 25 mcg PO DAILY 90 days docusate sodium (Colace) 100 mg PO BID 90 days escitalopram oxalate 10 mg PO BEDTIME 90 days ferrous sulfate 325 mg PO DAILY 90 days levonorgestrel (Mirena) intrauterine metoprolol succinate ER 25 mg PO DAILY 90 days naproxen 500 mg PO Q12H PRN 90 days pantoprazole 40 mg PO DAILY 90 days semaglutide (weight loss) (Wegovy) 0.25 mg (0.5 mL) subcut QWEEK 4 weeks HPI Comments Details: Nimisha is a very pleasant 43-year-old female who presents to the office today for evaluation and management of her chronic neck and lower back pain. She is accompanied by her . Visit was completed with stitchdown thread laster, Samuel. Patient has been suffering with this pain for greater than 3 years. Reports the pain started after a fall. Endorses midline cervical neck pain with pain across the trapezius bilaterally. Also endorses midline lower back pain without radiation down either lower extremity. Denies weakness, numbness, tingling of either upper or lower extremity Pain today is rated as an 8/10, constant throughout the day. Pain is exacerbated by movement, bending, twisting, standing, sitting Pain improves with rest. She has not undergone physical therapy for this pain. Denies history of chiropractor, acupuncture or injections. She has previously had massage therapy while in [place] but pain persists Denies red flag symptoms including new loss of bowel, bladder or saddle anesthesia Patient is not currently taking any medications for pain In terms of muscle damage condition is described as dull, aching, throbbing, burning, sharp Pain is negatively impacting patient's enjoyment of life, general activity, sleep, ability to perform activities of daily living. Denies current use of nicotine, tobacco, alcohol or illicit substances Denies current use of anticoagulants Denies implantable devices, pacemaker defibrillator [facility] Medical History Skin lesion Constipation by delayed colonic transit Right hip pain Tachycardia Mild major depression, single episode Lumbar pain Right hip pain Hair loss Obesity due to excess calories without serious comorbidity Insomnia Iron deficiency anemia due to chronic blood loss Microscopic hematuria Hypovitaminosis D Pelvic pain FH: cholecystectomy Obesity (BMI 30.0-34.9) GERD (gastroesophageal reflux disease) Mitral valve prolapse Surgical History History of cholecystectomy H/O LEEP History of left oophorectomy History of appendectomy Tubal ligation status Family History Father Diabetes mellitus Mother History of breast cancer Emphysema lung Sister Thyroid cancer Brother History of open heart surgery Social History Household Members: Spouse Housing: Apartment Alcohol intake: former Patient Tobacco Use Status: Former Tobacco user Tobacco use type: Cigarette Years Smoked: 3 years e-Cigarette/Vaping Use: Never Used Second Hand Smoke Exposure: No service: No Current occupational status: unemployed Sexual orientation: Straight/Heterosexual Gender identity: Female Cognitive needs: No Hearing needs: No Vision needs: No Female Reproductive History Menstrual Age of Menarche: 13 Review of Systems Const All systems reviewed & are unremarkable except as noted in HPI and below Physical Exam Vital Signs: Last Vital Signs Pulse 75 06/11/24 14:29 BP 137/87 06/11/24 14:29 Pulse Ox 96 06/11/24 14:29 Oxygen Delivery Method Room Air 06/11/24 14:29 BMI result Body Mass Index 35.0 General: awake, alert, oriented. Answers questions appropriately. Fully engaged in examination. Skin: warm, dry, intact HEENT: Normocephalic. Hearing intact. Cardiac: External chest normal in appearance. Respiratory: No cough, audible wheezing or stridor. Abdomen: without gross distension. MS: No obvious swelling or deformities. Able to stand on bilateral tiptoes and bilateral heels.? Able to transition from sit to stand unassisted. Ambulates with bilaterally normal heel strike and toe off SLR negative bilaterally Nontender over bilateral PSIS Tenderness to palpation midline lumbar vertebrae and lumbar paraspinal muscles Bilateral lower extremity strength 5/5 Tenderness to palpation midline cervical vertebrae and across bilateral trapezius Decreased cervical range of motion Decreased lumbar range of motion Facet loading positive cervical and lumbar Neurological: Oriented to person, place, time and situation. Thought process intact. No gait abnormalities appreciated. Psychiatric: Appropriate mood and affect. Good judgment and insight. Results Reviewed Results Reviewed: X-rays were completed yesterday, results are pending Assessment & Plan Assessment & Plan (1) Neck pain: Code(s): M54.2 - Cervicalgia Category: Medical (2) Lumbar pain: Code(s): M54.50 - Low back pain, unspecified Category: Medical (3) Cervical spondylosis: Code(s): M47.812 - Spondylosis without myelopathy or radiculopathy, cervical region Category: Medical (4) Lumbar spondylosis: Code(s): M47.816 - Spondylosis without myelopathy or radiculopathy, lumbar region Category: Medical Plan History, physical exam and provocative testing consistent with cervical and lumbar spondylosis Order placed for PT eval and treat New prescription for diclofenac 50 mg p.o. twice daily as needed. Patient advised on cautions for use. Patient will follow up in the office after PT, if pain persists will further discuss interventional management. All questions and concerns were answered, patient agrees with the plan. Follow up after physical therapy, sooner if needed Orders: Orders PT Evaluation and Treatment Today M54.2 - Cervicalgia, M54.50 - Low back pain, unspecified Medications: New diclofenac potassium Discontinue naproxen. Do not take with any other nonsteroidal anti- inflammatory medications. Take with food 50 mg PO BID 60 tabs 1RF Coding Level of Care Code New Pt Level 4 (65905) Complex EM visit Add On G2211 Diagnoses Neck pain M54.2 Lumbar pain M54.50 Cervical spondylosis M47.812 Lumbar spondylosis M47.816
== END 2024-06-11 15:00 | disposition home or self-care (01) ==
PROVIDERS: PCP Internal Medicine; Visit Provider Registered Nurse Emergency
DX: M54.2 Cervicalgia (principal); M54.50 Low back pain, unspecified; M47.812 Spondylosis without myelopathy or radiculopathy, cervical region; M47.816 Spondylosis without myelopathy or radiculopathy, lumbar region
CPT/HCPCS: 99204; G2211

== ENCOUNTER → 2024-06-11 14:13 | Outpatient (BNVA) | payer OTHER, SELFPAY | PROVIDERS: PCP Internal Medicine; Visit Provider Registered Nurse Emergency | DX: M47.812 Spondylosis without myelopathy or radiculopathy, cervical region (principal); M47.816 Spondylosis without myelopathy or radiculopathy, lumbar region | CPT/HCPCS: 99202 ==

== ENCOUNTER 2024-08-13 14:40 | Outpatient (RCR) | payer OTHER, SELFPAY ==
--- NOTE | 2024-07-16 16:13 | MHC.PT.EP ---
[facility] [place] Office [place] [facility] [place] Office [address] [phone] F: [phone] F: [phone] F: [phone] F: [phone] Physical Therapy Plan of Care Date of Evaluation: 07/16/24 Date of Surgery: Diagnosis: Cervicalgia and low back pain, unspecified (MD Diagnosis) RS Assessment: Nimisha is a 44 y.o. Czech speaking female who is referred to PT by KAI Galan, with Dx of cervicalgia and low back pain, unspecified. She presents with weakness in core, lacking lumbar stability, poor posture leading to shoulder girdle muscle imbalances, contributing to cervical pain. Patient impairments include limited cervical ROM and lumbar ROM, poor posture, weakness in middle and lower traps and glutes and abdominals, antalgic gait and labored transfers. Patient current functional limitations are prolonged standing or sitting for walking, bending, squatting, lifting, laundry, extending neck, sleeping supine. Patient will benefit from skilled PT to address aforementioned impairments and functional limitations to meet established goals. Frequency and Duration: The patient will be seen 1-2x/week for 4 weeks Short Term Goals: 2 weeks Patient demonstrates consistency and independence with HEP to self manage symptoms. Patient presents with neutral shoulder and neck posture in sitting without cues. Snf Goals: 4 weeks Patient presents with increased R hip glute med strength 4+/5 to improve gait for long distances without sxs for walking in store. Patient presents with increased transverse abdominus strength to palpation to be able to bend/squat and lift laundry without sxs. Treatment Plan: Modalities to reduce pain, spasms and effusion. Manual therapy to restore motion and function. Therapeutic exercise to improve strength and flexibility. Neuromuscular re-education for posture and balance. Therapeutic activities to return to functional activities of daily living. Electronically signed by: David Quinonez, PT, DPT Please sign and return to therapist. Thank you for your referral.
--- NOTE | 2024-11-03 14:54 | MHC.PT.DC ---
[facility] [place] Office [place] Office [place] Office [address] Dagoberto De La Cruz [address] [phone] F: [phone] F: [phone] F: [phone] F: [phone] Physical Therapy Discharge Report Diagnosis: Cervicalgia and low back pain, unspecified (MD Diagnosis) RS Date of Surgery: Date of Evaluation: 07/16/24 Date of Discharge: 11/03/24 Treatments to Date: 5 Cancellations to Date: No Shows to Date: Discharge Status: Improved Function Independent with HEP Discharge Summary: Nimisha is independent w/HEP and was discharged at her last PT session on 08/13/24. She did well with PT interventions. Electronically signed by: David Quinonez, PT, DPT Please sign and return to therapist. Thank you for your referral.
== END 2024-11-03 14:54 | disposition home or self-care (01) ==
LOC: HO.PT 14:40
PROVIDERS: PCP Internal Medicine; Visit Provider Registered Nurse Emergency
DX: M54.50 Low back pain, unspecified (principal); M54.2 Cervicalgia
CPT/HCPCS: 97110; 97140; 97161; 97530

== ENCOUNTER 2024-11-18 08:02 | Outpatient (REF) | payer OTHER, SELFPAY ==
--- OUTSIDE RECORDS SUMMARY | 2024-11-18 08:05 | XMS_ITS | Encounter Summary ---
Author Organization [employer] [facility] Address [address] [place] [address] Care Team Providers Care Technical Systems Architect Name Role Phone Unavailable Primary Care Provider Unavailabl e Encounter Details Date Type Department Care Team (Latest Contact Info) Description 05/21/2021 Abstract [facility] CONVERSIONS Dental, Provider, DDS Social History Tobacco Use Types Packs/Day Years Used Date Smoking Tobacco: Never Assessed Comments Unknown Sex and Gender Information Value Date Recorded Sex Assigned at Female 07/29/2022 10:38 AM EDT Legal Sex Female 10:38 AM EDT Gender Identity Female 07/29/2022 10:38 AM EDT Sexual Orientation Choose not to disclose 2021 10:38 AM EDT documented as of this encounter Plan of Treatment Not on file documented as of this encounter Visit Diagnoses Not on filedocumented in this encounter
--- OUTSIDE RECORDS SUMMARY | 2024-11-18 08:05 | XMS_ITS | Clinical Summary ---
Author Organization [employer] Address [address] [place] [address] Care Team Providers Care Communication Arts Lecturer Name Role Phone Unavailable Primary Care Provider Unavailabl e Social History Tobacco Use Types Packs/Day Years Used Date Smoking Tobacco: Never Assessed Comments Unknown Sex and Gender Information Value Date Recorded Sex Assigned at Female 07/29/2022 10:38 AM EDT Legal Sex Female 10:38 AM EDT Gender Identity Female 07/29/2022 10:38 AM EDT Sexual Orientation Choose not to disclose 2021 10:38 AM EDT Plan of Treatment Health Maintenance Due Date Last Done Comments Depression Screening 1980 Alcohol/Substance Use Screening 1992 Tobacco Screening 1992 Family Planning (PISQ) 1995 Hepatitis B Vaccines (1 of 3 - 19+ 3-dose series) 1999 Pap Smear 2001 Cervical Cancer Screening 2010 HPV/Cotest 2010 Mammogram 2020 DTaP/Tdap/Td Vaccines (2 - T d or Tdap) 10/08/2022 10/08/2012 COVID-19 Vaccine (4 - 2023-2 5 season) 2024 12/04/2021, 07/05/2021, 06/14/2021 Influenza Vaccine (#1) 2024 11/14/2021 Zoster Vaccines (1 of 2) 2030 RSV Patients and Patients Aged 60 years or older (1 - 1-dose 75+ series) 2055 HIB Vaccines Aged Out No longer eligi ble based on patient's age to complete this topic HPV Vaccines Aged Out No longer eligi ble based on patient's age to complete this topic Hepatitis A Vaccines Aged Out No long er eligible based on patient's age to complete this topic IPV Vaccines Aged Out No longer eligi ble based on patient's age to complete this topic Meningococcal Vaccine Aged Out No francis brittany eligible based on patient's age to complete this topic Pneumococcal Vaccine: Pediatrics (0 to 5 Years) and At-Risk Patients (6 to 49) Years) Aged Out No longer eligible b ased on patient's age to complete this topic RSV under 20 months Aged Out No longe r eligible based on patient's age to complete this topic Rotavirus Vaccines Aged Out No longer eligible based on patient's age to complete this topic
[2024-11-18 09:05] LABS: Alanine Aminotransferase 29 U/L (0-31); Albumin Level 3.8 g/dL (3.5-5.0); Alkaline Phosphatase 86 U/L (39-117); Anion Gap 12 (12-20); Aspartate Amino Transferase 27 U/L (5-31); Bilirubin Total 0.5 mg/dL (0.0-1.0); Blood Urea Nitrogen 14 mg/dL (9-16); Calcium 8.7 mg/dL (8.4-10.2); Carbon Dioxide 23 mmol/L (22-29); Chloride 109 mmol/L (96-108); Cholesterol 176 mg/dL (<200); Estimated Glomerular Filt Rate > 60; Glucose Fasting 98 mg/dL (60-99); HDL Cholesterol 43 mg/dL (>40); LDL Cholesterol Calculated 108 mg/dL (<100); Sodium 140 mmol/L (135-145); Total Protein 7.4 g/dL (6.5-8.0); Triglycerides 126 mg/dL (<150)
== END 2024-11-18 08:03 | disposition home or self-care (01) ==
LOC: HO.LAB 08:02
PROVIDERS: PCP Internal Medicine; Visit Provider Internal Medicine
DX: R73.02 Impaired glucose tolerance (oral) (principal); E78.5 Hyperlipidemia, unspecified; E55.9 Vitamin D deficiency, unspecified
CPT/HCPCS: 36415; 80053; 80061; 82306

== ENCOUNTER 2024-11-23 16:45 | Outpatient (AMB) | payer OTHER, SELFPAY ==
--- NOTE | 2024-11-23 16:56 | A.OFFPC_ITS ---
Vital Signs 11/23/24 16:59 Height 5 ft 6 in Weight 208 lb BMI 33.6 BP 120/80 Blood Pressure Location Lt brachial Position Sitting Intake Visit Reasons: 6 month follow up Intake Note: Patient here for a 6 month follow up Taxi Truck Driver Required: No Accompanied by: Self / Same As Patient Allergies No Known Allergies [No Known Allergies*] Allergy (Verified 11/23/24 17:24) Medication List - Last Reconciled 11/23/24 by Sarai Quintana MD cholecalciferol (vitamin D3) 25 mcg PO DAILY 90 days diclofenac potassium 50 mg PO BID docusate sodium (Colace) 100 mg PO BID 90 days escitalopram oxalate 10 mg PO BEDTIME 90 days ferrous sulfate 325 mg PO DAILY 90 days levonorgestrel (Mirena) intrauterine metoprolol succinate ER 25 mg PO DAILY 90 days naproxen 500 mg PO Q12H PRN 90 days pantoprazole 40 mg PO DAILY 90 days semaglutide (weight loss) (Wegovy) 0.25 mg (0.5 mL) subcut QWEEK 4 weeks Tobacco use date assessed: 11/23/24 Dental Screening Dental Screen Date: 11/23/24 Did you have a dental visit in the last 12 months?: No Did you have a dental problem in the last 6 months where you did not have access to dental care?: No Was dental information given to patient?: Patient has dentist HPI HPI Comments History of Present Illness Details The patient is a 44-year-old female presenting for follow-up of her lab results and current medical condition management. She was previously diagnosed with depression with anxiety and is currently on citalopram. She also has a history of iron deficiency anemia for which she takes supplemental iron daily. Hyperlipidemia was noted with previous high cholesterol levels at 206, which have successfully decreased to 176. Similarly, triglyceride levels reduced from 185 to 126. In the past, she was categorized as prediabetic with a glucose level of 116, which has now normalized to 98. She has had significant weight reduction from 217 lbs in May to 208 lbs in October, moving from Class 2 Obesity to Class 1. She attributes her weight loss to dietary changes including reduced rice intake and increased physical activity. She initiated treatment with Wegovy last year, which is administered once weekly, contributing to her weight management progress. The effectiveness of ongoing therapy was evidenced by no reported sadness, and she continues psychotherapy. [facility] Medical History Skin lesion Constipation by delayed colonic transit Right hip pain Tachycardia Mild major depression, single episode Lumbar pain Right hip pain Hair loss Obesity due to excess calories without serious comorbidity Insomnia Iron deficiency anemia due to chronic blood loss Microscopic hematuria Hypovitaminosis D Pelvic pain FH: cholecystectomy Obesity (BMI 30.0-34.9) GERD (gastroesophageal reflux disease) Mitral valve prolapse Surgical History History of cholecystectomy H/O LEEP History of left oophorectomy History of appendectomy Tubal ligation status Family History Father Diabetes mellitus Mother History of breast cancer Emphysema lung Sister Thyroid cancer Brother History of open heart surgery Social History Household Members: Spouse Housing: Apartment Alcohol intake: former Patient Tobacco Use Status: Former Tobacco user Tobacco use type: Cigarette Years Smoked: 3 years e-Cigarette/Vaping Use: Never Used Second Hand Smoke Exposure: No service: No Current occupational status: unemployed Sexual orientation: Straight/Heterosexual Gender identity: Female Cognitive needs: No Hearing needs: No Vision needs: No Female Reproductive History Menstrual Age of Menarche: 13 Questionnaire PHQ-9 Over the last 2 weeks, how often have you been bothered by any of the following problems? 1. Little interest or pleasure in doing things: not at all 2. Feeling down, depressed, or hopeless: not at all 3. Trouble falling or staying asleep, or sleeping too much: not at all 4. Feeling tired or having little energy: not at all 5. Poor appetite or overeating: not at all 6. Feeling bad about yourself - or that you are a failure or have let yourself or your family down: not at all 7. Trouble concentrating on things, such as reading the newspaper or watching television: not at all 8. Moving or speaking so slowly that other people could have noticed. Or the opposite - being so fidgety or restless that you have been moving around a lot more than usual: not at all 9. Thoughts that you would be better off or of hurting yourself in some way: not at all Total score: 0 Depression Screening Interpretation: Negative Depression Screening Done: Yes 74799 - PHQ-9 Billing: Yes Source: Developed by Drs. Jose Quiles, Es Dominguez, Tony Blackwell and colleagues, with an educational scott from [employer]. Thrive Questionnaire Date Thrive assessed: 11/23/24 I am a: Patient What is your living situation today?: I have a steady place to live Within the past 12 months, did the food you bought not last and you didn't have the money to get more?: Never true Within the past 12 months, did you worry whether your food would run out before you got money to buy more?: Never true Do you have trouble paying for medicines?: Yes Do you have trouble getting transportation to medical appointments?: No Do you have trouble paying your heating and electricity bill?: No Do you have trouble taking care of your child, family member or friend?: I choose not to answer this question Do you have trouble with day-to-day activities such as bathing, preparing meals, shopping, managing finances, etc.?: Yes Are you currently unemployed and looking for a job?: Yes Are you interested in more education?: I choose not to answer this question Please select the resources that you would like help with: Housing/Skilled Nursing, Food, Paying for medicine and Daily support Currently or been in a relationship where the following occur: I choose not to answer THRIVE Score: 0 AUDIT C Alcohol Use Questionnaire (AUDIT-C) 1. How often do you have a drink containing alcohol?: Never Total Score: 0 Score Reviewed/Action Taken: No FORREST-7 AMB Questionnaire FORREST-7 Date FORREST - 7 assessed: 11/23/24 Feeling nervous, anxious, or on edge: 0 = Not at all Not being able to stop or control worryin = Not at all Worrying too much about different things: 0 = Not at all Trouble relaxin = Not at all Being so restless that it is hard to sit still: 0 = Not at all Becoming easily annoyed or irritable: 0 = Not at all Feeling afraid as if something awful might happen: 0 = Not at all Total FORREST-7 score (0-4 normal; 5-9 mild; 10-14 moderate; 15-21 severe): 0 Source: Developed by Drs. Jose Quiles, Es Dominguez, Tony Blackwell and colleagues, with an educational scott from [employer]. Review of Systems Const All systems reviewed & are unremarkable except as noted in HPI and below Card Denies chest pain at rest, Denies chest pain with activity, Denies edema, Denies irregular heart rhythm, Denies claudication, Denies dyspnea, Denies dyspnea on exertion, Denies orthopnea, Denies paroxysmal nocturnal dyspnea and Denies slow heart rate Resp Denies cough, Denies dyspnea and Denies dyspnea on exertion GI Denies abdominal pain, Denies change in bowel habits, Denies excessive flatus, Denies nausea and Denies vomiting Denies urinary incontinence, Denies urinary hesitancy and Denies urinary urgency Musc Denies atrophy, Denies deformity and Denies limited range of motion Skin/Breast Denies bleeding lesions, Denies changing lesions and Denies rash Physical exam (Primary Care) Vital Signs: Last Vital Signs BP 120/80 11/23/24 16:59 BMI result Body Mass Index 33.6 Tobacco/Smoking Status: Tobacco use Status Tobacco use date assessed 11/23/24 11/23/24 17:01 Patient Tobacco Use Status Former Tobacco user 11/23/24 16:58 Tobacco use type Cigarette 11/23/24 16:58 e-Cigarette/Vaping Use Never Used 11/23/24 16:58 PHQ-9: PHQ-9 Score PHQ-9: Total score 0 11/23/24 17:28 Depression Screening Interpretation: Negative Thrive Assessment: Date of Thrive Assessment Date Thrive assessed 11/23/24 11/23/24 16:58 Currently or been in a relationship where the following occur: I choose not to answer Resp Effort & Inspection: normal respiratory effort Auscultation: clear to auscultation bilaterally Cardio Jugular venous distension: no JVD Rate: regular rate Rhythm: regular rhythm Heart sounds: S1 normal heart sound present and S2 normal heart sound present Extrem General: Yes full ROM Coding Level of Care Code Est Pt Level 4 ([id number]) Complex EM visit Add On G2211 Diagnoses Mild major depression, single episode F32.0 Gastroesophageal reflux disease, unspecified whether esophagitis present K21.9 Esophagitis presence: esophagitis presence not specified Class 1 obesity due to excess calories without serious comorbidity with body mass index (BMI) of 33.0 to 33.9 in adult E66.09; Z68.33 Obesity classification: adult class 1 (BMI 30 - 34.9) Body mass index: BMI 33.0-33.9 Iron deficiency anemia due to chronic blood loss D50.0 Hypovitaminosis D E55.9 Additional Codes PHQ-9 - 52257 - PHQ-9 Billing: Yes ([id number]) Time Spent (min) 21 Assessment & Plan Assessment & Plan (1) Mild major depression, single episode: Code(s): F32.0 - Major depressive disorder, single episode, mild Category: Medical (2) GERD (gastroesophageal reflux disease): Code(s): K21.9 - Gastro-esophageal reflux disease without esophagitis Category: Medical Qualifiers: Esophagitis presence: esophagitis presence not specified Qualified Code(s): K21.9 - Gastro-esophageal reflux disease without esophagitis (3) Obesity due to excess calories without serious comorbidity: Code(s): E66.09 - Other obesity due to excess calories Category: Medical Qualifiers: Obesity classification: adult class 1 (BMI 30 - 34.9) Body mass index: BMI 33.0-33.9 Qualified Code(s): E66.09 - Other obesity due to excess calories; Z68.33 - Body mass index [BMI] 33.0-33.9, adult (4) Iron deficiency anemia due to chronic blood loss: Code(s): D50.0 - Iron deficiency anemia secondary to blood loss (chronic) Category: Medical (5) Hypovitaminosis D: Code(s): E55.9 - Vitamin D deficiency, unspecified Category: Medical Plan - Continue escitalopram for depression with anxiety. - Maintain daily iron supplement for iron deficiency anemia. - Continue lifestyle modifications and Wegovy for obesity management. - Re-evaluate the lipid profile and glucose levels in May. - Continue dietary changes for hyperlipidemia management. - Continue psychotherapy sessions. Patient was informed and verbally consented to the use of an ambient scribe for clinic note documentation during this visit. I discussed with the patient that her condition is improving based on her lab r esults, with a significant decrease in glucose and cholesterol levels. We reviewed that the current management, including citalopram and iron supplementations, remain effective. The patient has achieved noted weight loss with the ongoing use of Wegovy and reported lifestyle modifications. I recommended continuing the weight management strategy and clarified that further lab evaluations would be scheduled for May. The patient was advised to persist with psychotherapy to manage her mental health effectively. All instructions were discussed comprehensively, and the patient agreed to the [facility] rent management plans. Orders: Orders Vitamin D 25-OH Total 7 Months E55.9 - Vitamin D deficiency, unspecified Lipid Panel 7 Months E78.5 - Hyperlipidemia, unspecified Complete Blood Count Auto Diff 7 Months D64.9 - Anemia, unspecified IRON PROFILE 7 Months D64.9 - Anemia, unspecified Comprehensive [place]. Panel Fast 7 Months M47.816 - Spondylosis without myelopathy or radiculopathy, lumbar region Medications: Discontinued semaglutide (weight loss) (Wegovy) administer weeks 1 through 4 of therapy Discontinued Reason: Patient Completed Course 0.25 mg (0.5 mL) subcut QWEEK 4 weeks 2 mL 0RF E66.9 - Obesity, unspecified Patient Instructions: - Maintain the current medication regimen, including citalopram and iron supplements. - Continue with dietary changes, avoiding excess rice and other carbohydrates. - Keep up with regular physical activity and weight management. - Attend psychotherapy sessions regularly. - Return for lab re-evaluation in May. - Monitor for any new symptoms and report if they arise.
[2024-11-23 16:59] VITALS: BP 120/80; BMI 33.6
--- OUTSIDE RECORDS SUMMARY | 2024-11-23 19:52 | XMS_ITS | Clinical Summary ---
Author Organization [employer] Address [address] [place] [address] Care Team Providers Care Ash Handler Name Role Phone Unavailable Primary Care Provider [...]
--- OUTSIDE RECORDS SUMMARY | 2024-11-23 19:52 | XMS_ITS | Encounter Summary ---
Author Organization [facility] Address [address] [place] [address] Care Team Providers Care Supervisor Smoke Control Name Role Phone Unavailable Primary Care Provider [...]
== END 2024-11-23 18:00 | disposition home or self-care (01) ==
PROVIDERS: PCP Internal Medicine; Visit Provider Internal Medicine
DX: F32.0 Major depressive disorder, single episode, mild (principal); K21.9 Gastro-esophageal reflux disease without esophagitis; E66.09 Other obesity due to excess calories; Z68.33 Body mass index [BMI] 33.0-33.9, adult; D50.0 Iron deficiency anemia secondary to blood loss (chronic); E55.9 Vitamin D deficiency, unspecified

== ENCOUNTER → 2024-11-23 16:45 | Outpatient (BNVA) | payer OTHER, SELFPAY | PROVIDERS: PCP Internal Medicine; Visit Provider Internal Medicine | DX: F32.0 Major depressive disorder, single episode, mild (principal); K21.9 Gastro-esophageal reflux disease without esophagitis; E66.09 Other obesity due to excess calories; Z68.33 Body mass index [BMI] 33.0-33.9, adult; D50.0 Iron deficiency anemia secondary to blood loss (chronic); E55.9 Vitamin D deficiency, unspecified; Z71.3 Dietary counseling and surveillance | CPT/HCPCS: 96127; 99212 ==

== ENCOUNTER 2024-11-25 08:45 | Outpatient (REF) | payer OTHER, SELFPAY ==
--- OUTSIDE RECORDS SUMMARY | 2024-11-25 09:16 | XMS_ITS | Encounter Summary ---
Author Organization [facility] [facility] Address [address] [place] [address] Care Team Providers Care Cement Mixer Driver Name Role Phone Unavailable Primary Care Provider [...]
--- OUTSIDE RECORDS SUMMARY | 2024-11-25 09:16 | XMS_ITS | Clinical Summary ---
Author Organization [employer] Address [address] [place] [address] Care Team Providers Care Cms Expert Name Role Phone Unavailable Primary Care Provider [...]
== END 2024-11-25 08:46 | disposition home or self-care (01) ==
LOC: HO.MAMMO 08:45
PROVIDERS: PCP Internal Medicine; Visit Provider Internal Medicine
DX: Z12.31 Encounter for screening mammogram for malignant neoplasm of breast (principal)
CPT/HCPCS: 77063; 77067

== ENCOUNTER → 2024-11-25 09:15 | Outpatient (BNV) | payer OTHER, SELFPAY | PROVIDERS: PCP Internal Medicine; Visit Provider Internal Medicine | DX: Z12.31 Encounter for screening mammogram for malignant neoplasm of breast (principal) | CPT/HCPCS: 77063; 77067 ==

== ENCOUNTER 2025-01-13 10:28 | Outpatient (REF) | payer OTHER, SELFPAY ==
[2025-01-13 12:52] LABS: HBc Num1 0.08 S/CO (0.00-0.79); HIV AB/AG Nonreactive (Nonreactive); HIV Num 1 0.06 S/CO (0.00-0.99); Hepatitis B Core Antibody Nonreactive (Nonreactive); Syphilis Screen Nonreactive (Nonreactive); ~HepC Num1 0.14 S/CO (0.00-0.79); ~Hepatitis C Antibody Nonreactive (Nonreactive)
[2025-01-13 16:40] LABS: CT PCR NOT DETECTED (Not Detect.); NG PCR NOT DETECTED (Not Detect.)
[2025-01-14 16:54] LABS: Bacterial Vaginosis PCR NEGATIVE (Negative); Candida Group PCR NOT DETECTED (Not Detect); Candida glab krusei PCR NOT DETECTED (Not Detect); Trichomonas vaginalis PCR NOT DETECTED (Not Detect)
[2025-01-20 14:12] LABS: HPV Genotype 16 Negative (Negative); HPV Genotype 18 Negative (Negative); HPV High Risk Negative (Negative)
== END 2025-01-13 10:29 | disposition home or self-care (01) ==
LOC: HO.LNP 10:28
PROVIDERS: PCP Internal Medicine; Visit Provider Advanced Practice Midwife
DX: Z01.419 Encounter for gynecological examination (general) (routine) without abnormal findings (principal); Z20.2 Contact with and (suspected) exposure to infections with a predominantly sexual mode of transmission
CPT/HCPCS: 81515; 86704; 86780; 86803; 87389; 87491; 87591; 87626; 88175; 99396; 99459

== ENCOUNTER 2025-01-13 10:28 | Outpatient (AMB) | payer OTHER, SELFPAY ==
--- NOTE | 2025-01-13 10:37 | A.OFFVIS_ITS ---
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 Doing well with no vice president investor relations concerns. Currently is not sexually active. Has regular menses with her IUD. History of AUB. Due for an exchange in August of 2026. She denies vaginal itching and irritation. STI screening offered; she accepts, and bloodwork. She tries to eat healthy and stays active with exercise. Family history of breast cancer-mom. Last pap smear 2020, negative. Prior ASCUS 2019. Mammogram: 2024. [facility] Medical History IUD (intrauterine device) in place Skin lesion Constipation by delayed colonic transit Right hip pain Tachycardia Mild major depression, single episode Lumbar pain Right hip pain Hair loss Obesity due to excess calories without serious comorbidity Insomnia Iron deficiency anemia due to chronic blood loss Microscopic hematuria Hypovitaminosis D Pelvic pain FH: cholecystectomy Obesity (BMI 30.0-34.9) GERD (gastroesophageal reflux disease) Mitral valve prolapse Surgical History History of cholecystectomy H/O LEEP History of left oophorectomy History of appendectomy Tubal ligation status Family History Father Diabetes mellitus Mother History of breast cancer Emphysema lung Sister Thyroid cancer Brother History of open heart surgery Social History Household Members: Spouse Housing: Apartment Alcohol intake: former Patient Tobacco Use Status: Former Tobacco user Tobacco use type: Cigarette Years Smoked: 3 years e-Cigarette/Vaping Use: Never Used Second Hand Smoke Exposure: No service: No Current occupational status: unemployed Sexual orientation: Straight/Heterosexual Gender identity: Female Cognitive needs: No Hearing needs: No Vision needs: No Female Reproductive History Menstrual Age of Menarche: 13 control method: progestin IUCD (Mirena 08/2021) and permanent sterilization Permanent Sterilization: BTL Total pregnancies: 3 Full term: 3 Number of Living Children: 3 Date of last pap smear: 07/20/21 (neg pap and hpv) History of abnormal pap smear: Yes (07/18 ascus, kali 2-3 hx leep 2012 in [place]) Date of Mammogram: 11/25/24 (Birad 1) Review of Systems Const All systems reviewed & are unremarkable except as noted in HPI and below Reports as per HPI Eyes Reports no additional complaints ENT Reports no additional complaints Card Reports no additional complaints Resp Reports no additional complaints GI Reports as per HPI and Reports no additional complaints Reports as per HPI Musc Reports no additional complaints Skin/Breast Reports as per HPI Neuro Reports no additional complaints Psych Reports no additional complaints Endo Reports no additional complaints Sudhir/Lymph Reports no additional complaints Aller/Immun Reports no additional complaints Physical Exam Vital Signs: Last Vital Signs BP 110/70 01/13/25 10:39 BMI result Body Mass Index 33.7 Const General: cooperative, healthy appearing, no acute distress, well developed and alert Orientation/consciousness: patient oriented x3 HEENT Head: Yes normal to inspection Eyes General: appearance normal, both eyes and all related structures Neck Neck: Yes normal visual inspection Thyroid: Thyroid normal Chest Chest palpation & inspection: normal inspection of the chest and other (no puckering, dimpling, peau de orange, retraction, discharge, masses) Breast/axilla inspection: normal inspection of the breasts Breast/axilla palpation: normal palpation of the breasts Resp Effort & Inspection: normal respiratory effort GI Inspection: Yes normal to inspection Palpation (GI): Soft to palpation Rectal Exam - Female: deferred General: Yes bladder normal to palpation External Female Exam: normal external appearance and normal appearance of the urethra Speculum Exam - Vagina: normal appearance of the vagina, normal palpation, normal vaginal discharge and vaginal bleeding Speculum Exam - Cervix: normal appearance of the cervix, normal palpation and Other cervical findings present (IUD strings at the os) Bimanual exam- vagina & uterus: normal bimanual exam, normal palpation, uterine size normal, bladder normal to palpation, normal palpation and non-tender Bimanual Exam- Adnexa, other: no masses OB/external & speculum: vaginal bleeding Skin General skin exam: no rashes or lesions noted Rashes: no rashes Neuro General: patient oriented x3 Cognition (Neuro): normal cognition Extrem General: Yes normal to inspection Psych Attitude: cooperative Thought process: Normal thought process present Assessment & Plan Assessment & Plan (1) Well woman exam with routine gynecological exam: Code(s): Z01.419 - Encounter for gynecological examination (general) (routine) without abnormal findings Category: Medical Plan Discussed: Current recommendations for pap smears per ASCCP guidelines. Pap obtained. Breast awareness and periodic breast exams. Mammogram yearly. Maintain a healthy lifestyle including a well balanced diet and routine exercise. Use condoms for STI prevention. STD blood work cervical cultures obtained follow up pending results Patient verbalizes understanding and agrees to the plan of care. She was given opportunity to ask questions and all questions were answered to the best of my ability. RTO in one year for annual vice president investor relations examination. This note is constructed using voice recognition software. While every effort has been made to ensure accuracy, four corner stayer machine operator errors may have been included. Orders: Orders HIV Ab/Ag Today Z20.2 - Contact with and (suspected) exposure to infections with a predominantly sexual mode of transmission Hepatitis C Antibody Reflex Today Z20.2 - Contact with and (suspected) exposure to infections with a predominantly sexual mode of transmission Syphilis Screen Today Z20.2 - Contact with and (suspected) exposure to infections with a predominantly sexual mode of transmission Hepatitis B Core Antibody Today Z20.2 - Contact with and (suspected) exposure to infections with a predominantly sexual mode of transmission Coding Level of Care Code Est Pt Prev Care 40-64y(87547) Diagnoses Well woman exam with routine gynecological exam Z01.419
[2025-01-13 10:39] VITALS: BP 110/70; BMI 33.7
--- OUTSIDE RECORDS SUMMARY | 2025-01-13 12:33 | XMS_ITS | Clinical Summary ---
Author Organization [employer] Address [address] [facility] [facility] [address] [place] [address] Care Team Providers Care Water Service Supervisor Name Role Phone Unavailable Primary Care Provider [...]
--- OUTSIDE RECORDS SUMMARY | 2025-01-13 12:33 | XMS_ITS | Encounter Summary ---
Author Organization [facility] Address [address] [facility] [address] [place] [address] Care Team Providers Care Retail Merchandising Specialist Name Role Phone Unavailable Primary Care Provider [...]
== END 2025-01-13 13:43 | disposition home or self-care (01) ==
LOC: HO.HWSW 10:28
PROVIDERS: PCP Internal Medicine; Visit Provider Advanced Practice Midwife
DX: Z01.419 Encounter for gynecological examination (general) (routine) without abnormal findings (principal)
CPT/HCPCS: 99396; 99459

== ENCOUNTER 2025-01-13 11:19 | Outpatient (REF) | payer OTHER, SELFPAY ==
--- OUTSIDE RECORDS SUMMARY | 2025-01-13 14:05 | XMS_ITS | Clinical Summary ---
Author Organization [employer] Address [address] [facility] [address] [place] [address] Care Team Providers Care Nurse Aide Evaluator Name Role Phone Unavailable Primary Care Provider [...]
--- OUTSIDE RECORDS SUMMARY | 2025-01-13 14:05 | XMS_ITS | Encounter Summary ---
Author Organization [employer] [facility] Address [address] [place] [address] Care Team Providers Care Line Maintenance Technician Name Role Phone Unavailable Primary Care Provider [...]
== END 2025-01-13 11:20 | disposition home or self-care (01) ==
LOC: HO.LAB 11:19
PROVIDERS: PCP Internal Medicine; Visit Provider Advanced Practice Midwife
DX: Z13.89 Encounter for screening for other disorder (principal)

== ENCOUNTER 2025-06-03 06:37 | Outpatient (REF) | payer OTHER, SELFPAY ==
--- OUTSIDE RECORDS SUMMARY | 2025-06-03 06:40 | XMS_ITS | Clinical Summary ---
Author Organization [employer] Address [address] [facility] [address] [place] [address] Care Team Providers Care Regional Safety Manager Name Role Phone Unavailable Primary Care Provider [...] Date Last Done Comments Depression Screening 1980 Disability Screening 1980 Alcohol/Substance Use Screening 1992 Tobacco Screening 1992 Family Planning (PISQ) 1995 HPV Vaccines (1 - 3-dose series) 1995 Hepatitis B Vaccines (1 of 3 - 19+ 3-dose series) 1999 Pap Smear 2001 Cervical Cancer Screening 2010 HPV/Cotest 2010 Mammogram 2020 DTaP/Tdap/Td Vaccines (2 - T d or Tdap) 10/08/2022 10/08/2012 COVID-19 Vaccine (4 - 2023-2 5 season) 2024 12/04/2021, 07/05/2021, 06/14/2021 Influenza Vaccine (#1) 2025 11/14/2021 Zoster Vaccines (1 of 2) 2030 [...] patient's age to complete this topic Meningococcal B Vaccine Aged Out No l onger eligible based on patient's age to complete this topic Meningococcal Vaccine Aged Out No francis brittany eligible based on patient's age to complete this topic Pneumococcal Vaccine: Pediatrics (0 to 5 Years) and At-Risk Patients (6 to 49) Years Aged Out No longer eligible b ased on patient's age to complete this topic RSV under 20 months Aged Out No longe r eligible based on patient's age to complete this topic Rotavirus Vaccines Aged Out No longer eligible based on patient's age to complete this topic
--- OUTSIDE RECORDS SUMMARY | 2025-06-03 06:40 | XMS_ITS | Encounter Summary ---
Author Organization [employer] Address [address] [facility] [address] [place] [address] Care Team Providers Care Disability Services Coordinator Name Role Phone Unavailable Primary Care Provider [...]
[2025-06-03 06:54] LABS: MANUAL DIFF FLAG NO
[2025-06-03 07:41] LABS: Hematocrit 41.2 % (37.0-47.0); Hemoglobin 13.8 g/dl (12.0-16.0); Imm Gran Abs Auto 0.01 X10*3/uL (0.00-0.03); Imm Gran Pct Auto 0.2 % (0.0-0.4); Lymphocytes Absolute Auto 1.7 X10*3/uL (1.2-4.9); Mean Corpuscular HGB Conc 33.5 g/dl (31.0-35.0); Mean Corpuscular Hemoglobin 28.3 pg (27.0-33.0); Mean Corpuscular Volume 84.4 fL (80.0-98.0); NRBC Abs Auto 0.000 X10*3/uL (0.0-0.012); NRBC Pct Auto 0.0 /100WBC (0.0-0.2); Platelet Count 248 X10*3/uL (160-400); Red Blood Count 4.88 X10*6/uL (4.20-5.50); White Blood Count 5.4 X10*3/uL (4.8-10.8)
[2025-06-03 08:17] LABS: Alanine Aminotransferase 13 U/L (0-31); Albumin Level 4.1 g/dL (3.5-5.0); Alkaline Phosphatase 75 U/L (39-117); Anion Gap 13 (12-20); Aspartate Amino Transferase 22 U/L (5-31); Blood Urea Nitrogen 14 mg/dL (9-16); Calcium 8.4 mg/dL (8.4-10.2); Carbon Dioxide 23 mmol/L (22-29); Chloride 108 mmol/L (96-108); Cholesterol 188 mg/dL (<200); Estimated Glomerular Filt Rate > 60; HDL Cholesterol 40 mg/dL (>40); Iron 114 mcg/dL (30-160); Percent Iron Saturation 40 % (15-50); Potassium 3.7 mmol/L (3.3-5.1); Sodium 140 mmol/L (135-145); Total Iron Binding Capacity 286 mcg/dL (228-428); Total Protein 7.1 g/dL (6.5-8.0); Triglycerides 103 mg/dL (<150); Unsaturated Iron Binding 172 ug/dL
== END 2025-06-03 06:38 | disposition home or self-care (01) ==
LOC: HO.LAB 06:37
PROVIDERS: PCP Internal Medicine; Visit Provider Internal Medicine
DX: E55.9 Vitamin D deficiency, unspecified (principal); D64.9 Anemia, unspecified; M47.816 Spondylosis without myelopathy or radiculopathy, lumbar region; E78.5 Hyperlipidemia, unspecified
CPT/HCPCS: 36415; 80053; 80061; 82306; 83540; 85025

== ENCOUNTER 2025-06-14 16:59 | Outpatient (AMB) | payer OTHER, SELFPAY ==
[2025-06-14 17:03] VITALS: BP 120/62; PULSE 78; RESP 18; TEMP 36.3; O2SAT 97; BMI 33.3
--- NOTE | 2025-06-14 17:03 | MHC.PC.OV ---
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 Accompanied by: Self / Same As Patient Allergies No Known Allergies (No Known Allergies*) Allergy (Verified 06/14/25 17:25) Medication List - Last Reconciled 06/14/25 by Sarai Quintana MD cholecalciferol (vitamin D3) 25 mcg PO DAILY 90 days diclofenac potassium 50 mg PO BID docusate sodium (Colace) 100 mg PO BID 90 days escitalopram oxalate 10 mg PO BEDTIME 90 days ferrous sulfate 325 mg PO DAILY 90 days levonorgestrel (Mirena) intrauterine metoprolol succinate ER 25 mg PO DAILY 90 days naproxen 500 mg PO Q12H PRN 90 days pantoprazole 40 mg PO DAILY 90 days Tobacco use date assessed: 06/14/25 Dental Screening Dental Screen Date: 06/14/25 Did you have a dental visit in the last 12 months?: No Did you have a dental problem in the last 6 months where you did not have access to dental care?: No Was dental information given to patient?: No HPI HPI Comments History of Present Illness Details The patient is a 44-year-old female presenting with a physical exam. She has undergone a mammogram and a Pap smear this year, both of which were negative. Her blood work was conducted and results were within normal limits. She reports experiencing allergic rhinitis and itchiness in the ear, for which eardrops will be sent to the pharmacy. Ferrous sulfate was discontinued as her hemoglobin levels are normal, and a complete blood count will be repeated in six months. She denies any acute complaints, including chest pain and shortness of breath. 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 [facility] Medical History (Updated 06/14/25 @ 20:44 by Sarai Quintana MD) IUD (intrauterine device) in place Skin lesion Constipation by delayed colonic transit Right hip pain Tachycardia Mild major depression, single episode Lumbar pain Right hip pain Hair loss Obesity due to excess calories without serious comorbidity Insomnia Iron deficiency anemia due to chronic blood loss Microscopic hematuria Hypovitaminosis D Pelvic pain FH: cholecystectomy Obesity (BMI 30.0-34.9) GERD (gastroesophageal reflux disease) Mitral valve prolapse Surgical History History of cholecystectomy H/O LEEP History of left oophorectomy History of appendectomy Tubal ligation status Family History Father Diabetes mellitus Mother History of breast cancer Emphysema lung Sister Thyroid cancer Brother History of open heart surgery Social History Household Members: Spouse Housing: Apartment Alcohol intake: former Patient Tobacco Use Status: Former Tobacco user Tobacco use type: Cigarette Years Smoked: 3 years e-Cigarette/Vaping Use: Never Used Second Hand Smoke Exposure: No service: No Current occupational status: unemployed Sexual orientation: Straight/Heterosexual Gender identity: Female Cognitive needs: No Hearing needs: No Vision needs: No Female Reproductive History Menstrual Age of Menarche: 13 Questionnaire PHQ-9 Over the last 2 weeks, how often have you been bothered by any of the following problems? 1. Little interest or pleasure in doing things: several days 2. Feeling down, depressed, or hopeless: not at all 3. Trouble falling or staying asleep, or sleeping too much: not at all 4. Feeling tired or having little energy: several days 5. Poor appetite or overeating: not at all 6. Feeling bad about yourself - or that you are a failure or have let yourself or your family down: not at all 7. Trouble concentrating on things, such as reading the newspaper or watching television: not at all 8. Moving or speaking so slowly that other people could have noticed. Or the opposite - being so fidgety or restless that you have been moving around a lot more than usual: not at all 9. Thoughts that you would be better off or of hurting yourself in some way: not at all Total score: 2 Depression Screening Interpretation: Positive Depression Screening Follow-up: Existing condition, In treatment, Community Mental Health Worker F/U and Follow-up Visit Requested Depression Screening Done: Yes 52538 - PHQ-9 Billing: Yes Source: Developed by Drs. Jose Quiles, Tony Verma and colleagues, with an educational scott from [employer]. Thrive Questionnaire Date Thrive assessed: 06/12/25 I am a: Patient What is your living situation today?: I choose not to answer this question Within the past 12 months, did the food you bought not last and you didn't have the money to get more?: I choose not to answer this question Within the past 12 months, did you worry whether your food would run out before you got money to buy more?: I choose not to answer this question Do you have trouble paying for medicines?: No Do you have trouble getting transportation to medical appointments?: No Do you have trouble paying your heating and electricity bill?: No Do you have trouble taking care of your child, family member or friend?: No Do you have trouble with day-to-day activities such as bathing, preparing meals, shopping, managing finances, etc.?: No Are you currently unemployed and looking for a job?: I choose not to answer this question Are you interested in more education?: No Please select the resources that you would like help with: Housing/Long Term and Food Currently or been in a relationship where the following occur: No concerns reported THRIVE Score: 0 AUDIT C Alcohol Use Questionnaire (AUDIT-C) 1. How often do you have a drink containing alcohol?: Never Total Score: 0 Score Reviewed/Action Taken: No FORREST-7 AMB Questionnaire FORREST-7 Date FORREST - 7 assessed: 11/23/24 Feeling nervous, anxious, or on edge: 0 = Not at all Not being able to stop or control worryin = Not at all Worrying too much about different things: 0 = Not at all Trouble relaxin = Not at all Being so restless that it is hard to sit still: 0 = Not at all Becoming easily annoyed or irritable: 0 = Not at all Feeling afraid as if something awful might happen: 0 = Not at all Total FORREST-7 score (0-4 normal; 5-9 mild; 10-14 moderate; 15-21 severe): 0 Source: Developed by Es Garner Kurt Kroenke and colleagues, with an educational scott from [employer]. FORREST-7 Assessment Billing FORREST-7 Assessment Tool: FORREST-7 Assessment 35067 Review of Systems Const All systems reviewed & are unremarkable except as noted in HPI and below Card Denies chest pain at rest, Denies chest pain with activity, Denies edema, Denies irregular heart rhythm, Denies claudication, Denies dyspnea, Denies dyspnea on exertion, Denies orthopnea, Denies paroxysmal nocturnal dyspnea and Denies slow heart rate Resp Denies cough, Denies dyspnea and Denies dyspnea on exertion GI Denies abdominal pain, Denies change in bowel habits, Denies excessive flatus, Denies nausea and Denies vomiting Denies urinary incontinence, Denies urinary hesitancy and Denies urinary urgency Musc Denies abnormal gait, Denies atrophy, Denies deformity and Denies limited range of motion Skin/Breast Denies bleeding lesions, Denies changing lesions and Denies rash Neuro Denies abnormal gait, Denies behavioral changes, Denies confusion and Denies lack of coordination Psych Denies behavioral changes and Denies confusion Endo Denies cold intolerance Physical exam (Primary Care) Vital Signs: Last Vital Signs Temp 97.3 F 06/14/25 17:03 Pulse 78 06/14/25 17:03 Resp 18 06/14/25 17:03 BP 120/62 06/14/25 17:03 Pulse Ox 97 06/14/25 17:03 Oxygen Delivery Method Room Air 06/14/25 17:03 BMI result Body Mass Index 33.3 Tobacco/Smoking Status: Tobacco use Status Tobacco use date assessed 06/14/25 06/14/25 17:07 Patient Tobacco Use Status Former Tobacco user 06/14/25 17:07 Tobacco use type Cigarette 06/14/25 17:07 e-Cigarette/Vaping Use Never Used 06/14/25 17:07 PHQ-9: PHQ-9 Score PHQ-9: Total score 2 06/14/25 17:28 Depression Screening Interpretation: Positive Depression Screening Follow-up: Existing condition, In treatment, Community Mental Health Worker F/U and Follow-up Visit Requested Thrive Assessment: Date of Thrive Assessment Date Thrive assessed 06/12/25 06/14/25 17:07 Currently or been in a relationship where the following occur: No concerns reported Const General: No confusion Orientation/consciousness: patient oriented x3 and No confusion HENMT Head: Yes normal to inspection, Yes normocephalic and Yes atraumatic Ears: external ears normal Eyes General: appearance normal, both eyes and all related structures Eyelids: Yes eyelids normal Conjunctivae: conjunctivae normal Neck Neck: Yes normal visual inspection and Yes supple Resp Effort & Inspection: normal respiratory effort Auscultation: clear to auscultation bilaterally Cardio Jugular venous distension: no JVD Rate: regular rate Rhythm: regular rhythm Heart sounds: S1 normal heart sound present and S2 normal heart sound present GI Inspection: Yes normal to inspection Palpation (GI): Soft to palpation and nontender Auscultation: normal bowel sounds Skin General skin exam: no rashes or lesions noted Neuro General: patient oriented x3, no focal motor deficits and No confusion Extrem General: Yes full ROM Psych Appearance: grossly normal Coding Level of Care Code Est Pt Level 3 (89261) Est Pt Prev Care 40-64y(12634) Diagnoses Physical exam Z00.00 Mild major depression, single episode F32.0 Allergic rhinitis J30.9 Additional Codes FORREST-7 Assessment Billing - FORREST-7 Assessment Tool: FORREST-7 Assessment 91862 ([id number]) PHQ-9 - 26187 - PHQ-9 Billing: Yes ([id number]) Time Spent (min) 32 Assessment & Plan Assessment & Plan (1) Physical exam: Code(s): Z00.00 - Encounter for general adult medical examination without abnormal findings Category: Medical (2) Mild major depression, single episode: Code(s): F32.0 - Major depressive disorder, single episode, mild Category: Medical (3) Allergic rhinitis: Code(s): J30.9 - Allergic rhinitis, unspecified Category: Medical Plan Plan Patient was informed and verbally consented to the use of an ambient scribe for clinic note documentation during this visit. 1. Allergic Rhinitis The patient reports allergic rhinitis and itchiness in the ear. Eardrops will be sent to the pharmacy for management. 2. Depression The patient has a history of depression, which is stable with escitalopram. She attends counseling for this condition. 3. Preventative Care The patient underwent a mammogram and Pap smear this year, both of which were negative. Blood work was conducted and results were within normal limits. Orders: Orders Complete Blood Count Auto Diff 6 Months D64.9 - Anemia, unspecified IRON PROFILE 6 Months D64.9 - Anemia, unspecified Medications: Discontinued ferrous sulfate Discontinued Reason: Patient Completed Course 325 mg PO DAILY 90 days 90 tabs 3RF D50.0 - Iron deficiency anemia secondary to blood loss (chronic)
--- OUTSIDE RECORDS SUMMARY | 2025-06-14 19:12 | XMS_ITS | Encounter Summary ---
Author Organization [employer] Address [address] [place] [address] Care Team Providers Care Manager Call Name Role Phone Unavailable Primary Care Provider [...]
--- OUTSIDE RECORDS SUMMARY | 2025-06-14 19:12 | XMS_ITS | Clinical Summary ---
Author Organization [employer] Address [address] [place] [address] Care Team Providers Care Senior Librarian Name Role Phone Unavailable Primary Care Provider [...] Tdap) 10/08/2022 10/08/2012 COVID-19 Vaccine (4 - 2024-2 6 season) 2025 12/04/2021, 07/05/2021, 06/14/2021 Influenza Vaccine (#1) 2025 [...]
== END 2025-06-14 17:33 | disposition home or self-care (01) ==
LOC: HO.HMCH 17:00
PROVIDERS: PCP Internal Medicine; Visit Provider Internal Medicine
DX: Z00.00 Encounter for general adult medical examination without abnormal findings (principal); J30.9 Allergic rhinitis, unspecified; F32.0 Major depressive disorder, single episode, mild

== ENCOUNTER → 2025-06-14 16:59 | Outpatient (BNVA) | payer OTHER, SELFPAY | PROVIDERS: PCP Internal Medicine; Visit Provider Internal Medicine | DX: Z00.00 Encounter for general adult medical examination without abnormal findings (principal); J30.9 Allergic rhinitis, unspecified; F32.0 Major depressive disorder, single episode, mild; D50.0 Iron deficiency anemia secondary to blood loss (chronic) | CPT/HCPCS: 96127; 99212; 99396 ==